=== PATIENT | female | born 1975 | race Caucasian/White ===

== ENCOUNTER 2016-12-24 12:42 | Inpatient (IN) | payer BC, OTHER ==
[~2016-12-24] VITALS: Ht 162.6 cm; Wt 49.4 kg
--- NOTE | 2016-12-28 14:30 | NUR ---
INTAKE ASSESSMENT Received patient in intake. She is AOX4, stable, and ambulatory. Vital signs WNL. Patient reports NKA. Patient has seizure hx last seizure 5 years ago. Patient brought home medications with her. Explained unit protocols and patient verbalized understanding. Will admit patient upon admission to third floor.
--- NOTE | 2016-12-28 14:45 | NUR ---
ADMISSION NOTE Allergy- NKA/NKFA Status-Full code Height 5'4 Weight-109 lb PCP-Peter Ayala Vital Signs- B/P-149/89,HR-91, R-18, TEMP-97.4, SPO2-97%, Pain 0/10 COWS-6 Patient is a 41 year old female admitted to [facility] to detox center for Heroin/Methamphetamine dependence under the care of Dr. Branham. Urine provided by patient for urine screen and thorough body and belonging check done by DEPOSITION REPORTER. Patient appears anxious and agitated,crying. Patient is cooperative during nursing assessment. Upon admission Patient is noted to be flat, intoxicated, but cooperative with admission. Patient denies chest pain or SOB. Lung sounds clear with no cough noted. Bowel sounds present in all 4 quadrants. BUE and BLE noted WNL with no edema present. Skin check done with no significant findings. Pt reported PMH of Anxiety, Depression, Insomnia. Pt reported history of seizure last one was 5 years ago from overdose of heroin. Pt refused PNA vaccine. Patient brought in home medications. Patient denies SI/HI ideations. Pt AOx4. Patient reported 6 times in treatment. Patient reports of 8 years of sobriety from 1999 to 2007. Pt reported s/s of withdrawal as N/V, body aches, anxiety, agitation, runny nose, watery eyes. Pt reported Substance abuse history as: Heroin- Pt reported smoking Heroin daily for past 5 months less than 1/2gm daily last used was 12/28/16 an hour before admission at 1345 "1 hit". Methamphetamine- Pt reported smoking Methamphetamine daily for past 5 months and last used was 12/28/16 at 0900 "1 hit", Educated patient regarding unit policies and protocols, patient verbalized understanding. Patient oriented to unit by DEPOSITION REPORTER. Fall and seizure precautions in place. Safety measures in place, Call light within reach. Will cont to monitor.
[2016-12-28] MEDS ORDERED: BUSP15TA3 PO (14:48)
[2016-12-28 15:09] LABS: ALANINE AMINOTRANSFERASE 68 U/L (14-59); ALKALINE PHOSPHATASE 90 U/L (50-136); ASPARTATE AMINOTRANSFERASE 45 U/L (15-37); BILIRUBIN,TOTAL 0.2 mg/dL (0.2-1.0); CARBON DIOXIDE 34 mmol/L (21-32); CHLORIDE 101 mmol/L (98-107); CREATININE 0.7 mg/dL (0.6-1.3); GLUCOSE 92 mg/dL (74-106); MAGNESIUM 1.9 mg/dL (1.8-2.4); POTASSIUM 3.8 mmol/L (3.5-5.1); TOTAL PROTEIN, SERUM 7.5 g/dL (6.4-8.2); UREA NITROGEN, BLOOD 8 mg/dL (7-18)
[2016-12-28 15:17] LABS: ETHANOL < 3 MG/DL (0-0)
[2016-12-28 15:27] LABS: *URINE HCG, QUAL NEGATIVE (NEGATIVE)
[2016-12-28 18:04] LABS: HEMATOCRIT 40.4 % (37-47); HEMOGLOBIN 13.2 G/DL (12.0-16.0); MEAN CORPUSCULAR HEMOGLOBIN 29.8 UUG (27.0-31.0); MEAN CORPUSCULAR HGB CONC 33 g/dL (32.0-37.0); MEAN CORPUSCULAR VOLUME 90.8 FL (81.0-99.0); PLATELET COUNT (AUTO) 294 K/UL (150-450); RED BLOOD CELL COUNT(AUTO) 4.45 MIL/UL (4.2-5.4)
[2016-12-28 18:05] LABS: BASOPHILS # (AUTO) 0.1 K/uL (0.0-8.0); BASOPHILS % (AUTO) 0.8 % (0.0-2.0); EOSINOPHILS # (AUTO) 0.1 K/uL (0.0-0.7); EOSINOPHILS % (AUTO) 0.9 % (0.0-7.0); LYMPHOCYTES % (AUTO) 28.1 % (20.5-51.5); MONOCYTES # (AUTO) 0.5 K/UL (0.1-1.30); MONOCYTES % (AUTO) 7.5 % (0.0-11.0); NEUTROPHILS # (AUTO) 4.4 K/UL (1.8-8.9); NEUTROPHILS % (AUTO) 62.7 % (38.5-71.5)
--- NOTE | 2016-12-28 19:03 | NUR ---
END OF SHIFT NOTE Pt was admitted this afternoon for Heroin/opioid dependence. New order to start 3 days Subutex in AM. Upon admission COWS score was 6. Vital signs WNL. She did not attend group and activities. Encourage Po fluids. Last COWS score was-5. All safety measures in place, call light within reach. Pt endorsed to night nurse in stable condition.
--- NOTE | 2016-12-28 19:15 | NUR ---
START OF SHIFT Received 41 year old female patient admitted on 12/28/16 for Heroin and Methamphetamine dependency. Pt is full code with NKA. She reports a PMHx of anxiety, depression and seizure 5 years ago. Pt reports using Heroin (smoke) less than 0.5 gram daily for 5 months. Last dose was 1 hit on 12/28/16 and Methampehtamine (smoke) less than 0.5 gram daily for 5 months. Last dose 1 hot on 12/28/16. Pt placed on 3 day Subutex taper to start 12/29/16. Per endorsement, pt did not receive or request PRN medications. Pt is alert and oriented x4, breathing is even and unlabored. Safety measures in place. Will monitor.
--- NOTE | 2016-12-28 20:13 | NUR ---
PRN BENADRYL, MOTRIN, CLONIDINE, ZOFRAN Pt complains of inability to sleep, headache 7/10, anxiety/chills, and nausea with no episode of vomiting. PRN Benadryl, Motrin, Clonidine, and Zofran administered as ordered. Safety measures in place. Will monitor effectiveness.
--- NOTE | 2016-12-28 21:13 | NUR ---
PRN REASSESSMENT PRN medications effective. Pt lying in bed with eyes closed noted to be asleep. Respirations 16, breathing is even and unlabored. Safety measures in place. Will monitor.
[2016-12-29] VITALS (7 sets, daily range): BP systolic 100–118; BP diastolic 68–88
--- NOTE | 2016-12-29 | NUR ---
COWS DEFERRED Pt lying in bed with eyes closed noted to be asleep. Respirations 16, breathing even and unlabored. Safety measures in place. Will monitor.
--- NOTE | 2016-12-29 04:00 | NUR ---
COWS DEFERRED Pt lying in bed with eyes closed noted to be asleep. Respirations 16, breathing even and unlabored. Safety measures in place. Will monitor.
--- NOTE | 2016-12-29 05:40 | NUR ---
PRN SUBUTEX/VISTARIL Pt complains of body aches, chills, sweats, anxiety, and restlessness. COWS:12. PRN Subutex and Vistaril administered as ordered. Will monitor effectiveness.
[2016-12-29 06:06] LABS: HEPATITIS B SURFACE AG Negative (Negative)
--- NOTE | 2016-12-29 06:40 | NUR ---
PRN REASSESSMENT PRN medications effective. Pt lying in bed with eyes closed noted to be asleep. No facial grimacing noted. Respirations 16, breathing even and unlabored. Safety measures in place.
--- NOTE | 2016-12-29 07:10 | NUR ---
END OF SHIFT Pt is a 41 year old female patient admitted on 12/28/16 for Heroin and Methamphetamine dependency. Pt is full code with NKA. She reports a PMHx of anxiety, depression and seizure 5 years ago. Pt placed on 3 day Subutex taper to start today 12/29/16. At 2013 she received PRN Benadryl, Motrin, Clonidine, Zofran and Bentyl. At 0540 she received PRN Subutex and Vistaril. She slept a total of 7 hrs, Intake: 910 mL, Void: x1, BM:0, COWS:12. Pt remains alert and oriented x4, breathing is even and unlabored. Safety measures in place. Endorsed to AM shift.
--- NOTE | 2016-12-29 07:56 | NUR ---
START OF SHIFT NOTE Received report from night nurse, 41 year old female patient admitted on 12/28/16 for Heroin and Methamphetamine dependency. Pt is full code with JOSE. She reports a PMH of anxiety, depression and seizure 5 years ago. Pt placed on 3 day Subutex taper to start today at 0900. Per endorsement pt received PRN'S medications effective, slept for 7 hours. Received pt alert oriented x4, skin intact warm and dry to touch. Educated pt with plan of the day and medications regimen with good verbal understanding. All safety measures in place, Call light within reach. Will cont to monitor.
--- NOTE | 2016-12-29 10:35 | NUR ---
Therapist prompted client about group times. Client stated she will attend groups today.
[2016-12-29 12:40] LABS: *AMPHETAMINE, URINE POSITIVE (NEGATIVE); *BARBITURATE, URINE NEGATIVE (NEGATIVE); *CANNABINOID, URINE NEGATIVE (NEGATIVE); *COCCAINE, URINE NEGATIVE (NEGATIVE); *OPIATE, URINE POSITIVE (NEGATIVE); *PHENCYCLIDINE SCREEN,URINE NEGATIVE (NEGATIVE)
--- NOTE | 2016-12-29 14:19 | NUR ---
PRN MOTRIN/ROBAXIN Pt was c/o of muscle cramps and body aches 5/10, PRN Motrin 600mg Po/Robaxin 750mg Po given as ordered. Will cont to monitor for effectiveness.
--- NOTE | 2016-12-29 15:19 | NUR ---
MOTRIN/ROBAXIN REASSESSMENT Upon reassessment pt reported medication effective pain and muscle cramps decreased to 2/10.
--- NOTE | 2016-12-29 19:15 | NUR ---
START OF SHIFT Received 41 year old female patient admitted on 12/28/16 for Heroin and Methamphetamine dependency. Pt is full code with NKA. She reports a PMHx of anxiety, depression and seizure 5 years ago. Pt reports using Heroin (smoke) less than 0.5 gram daily for 5 months. Last dose was 1 hit on 12/28/16 and Methamphetamine (smoke) less than 0.5 gram daily for 5 months. Last dose 1 shot on 12/28/16. Pt placed on 3 day Subutex taper started today( 12/29/16) and tolerating well. Per endorsement, pt received PRN Motrin and Robaxin. Pt is alert and oriented x4, breathing is even and unlabored. Side rails up x2 and padded. Will monitor.
--- NOTE | 2016-12-29 19:16 | NUR ---
END OF SHIFT NOTE Pt presented with muscle cramps and body aches. Pt was given PRN Motrin/Robaxin noted to be effective. Pt cont with 3 days Subutex taper tolerating well. Pt remained compliant with treatment and medications. Vital signs WNL. She did not attend group and activities. Encourage Po fluids. last COWS-5. All safety measures in place, call light within reach. Pt endorsed to night nurse in stable condition.
[2016-12-30] VITALS: BP 108/65
--- NOTE | 2016-12-30 | NUR ---
COWS DEFERRED Pt lying in bed with eyes closed noted to be asleep. Respirations 16, breathing even and unlabored. Safety measures in place. Will continue to monitor.
--- NOTE | 2016-12-30 03:09 | NUR ---
PRN VISTARIL, ROBAXIN, MOTRIN Pt complains of anxiety, body aches 8/10, and headache 8/10. PRN Vistaril, Robaxin and Motrin administered as ordered. Safety measures in place. Will monitor effectiveness.
[2016-12-30 04:00] VITALS: BP 105/70
--- NOTE | 2016-12-30 04:09 | NUR ---
PRN REASSESSMENT PRN medication effective. Pt lying in bed with eyes closed noted to be asleep. Respirations 16, breathing is even and unlabored. Safety measures in place. Will monitor.
--- NOTE | 2016-12-30 06:25 | NUR ---
PRN CLONIDINE Pt complains of agitation, anxiety, diaphoresis, and restlessness. PRN Clonidine administered as ordered. Breathing even and unlabored. Safety measures in place. Will monitor.
--- NOTE | 2016-12-30 06:30 | NUR ---
MD COMMUNICATION Pt with increased COWS:12, observed with diaphoresis, anxiety, agitation and restlessness. MD with order for Subutex 4 mg SL now and to skip 0900 dose. Order noted and carried out. Addendum: 12/30/16 at 0652 by NAOMI MORA RN Pt also verbalized wanting to leave AMA d/t feelings of discomfort, depression and agitation. Pt stated "I just don't want to be here, I'm uncomfortable, this is not right, I'm not ready." Primary nurse allowed pt to express feelings. Will endorse to AM shift.
--- NOTE | 2016-12-30 07:06 | NUR ---
END OF SHIFT Pt is a 41 year old female patient admitted on 12/28/16 for Heroin and Methamphetamine dependency. Pt is full code with NKA. She reports a PMHx of anxiety, depression and seizure 5 years ago. She continues on 3 day Subutex taper started on (12/29/16) and tolerating well. At 0309 she received PRN Robaxin, Vistaril and Motrin. At 0625 she received PRN Clonidine for complaints of anxiety, agitation, diaphoresis. At 0625 pt noted with COWS:12, was notified with new order for Subutex 4 mg now and to skip 0900 dose. Pt verbalized wanting to leave AMA. She slept a total of 8 hrs, Intake: 1170mL, Void: x2, BM:0, COWS: 12 @ 0625. Pt remains alert and oriented x4, breathing is even and unlabored. Side rails up x2 and padded. Endorsed to oncoming shift.
--- NOTE | 2016-12-30 07:33 | NUR ---
Start of shift note; Received report from night nurse. Patient is a 41 year old female admitted on 12/28/16 for Opiate dependence. Patient was placed on a 3 day Subutex taper. Patient reported history of anxiety, depression, insomnia and history of seizure last seizure was 5 years ago. Patient slept for 8 hours. Per endorsement patient received one time order of Subutex and per MD to skip 0900 Subutex dose, patient was educated regarding medication regime, patient verbalized understanding. Patient is on fall and seizure precautions. All safety measures secured. Will continue to monitor patient.
[2016-12-30 08:00] VITALS: BP 107/74
[2016-12-30 12:00] VITALS: BP 102/68
--- NOTE | 2016-12-30 15:21 | NUR ---
PRN medication; PRN Robaxin 750mg PO given for muscle aches. Will continue to monitor patient for effectiveness of medication.
--- NOTE | 2016-12-30 15:58 | NUR ---
Patient and MD communication; Patient came up to nursing stating " I want to leave AMA, i don't think detox is for me. It is so hard i do not think i can do this". Redirected patient as needed. Educated patient regarding the consequences of leaving AMA, patient verbalized understanding. MD was notified of current situation. Patient is currently being counseled by management coordinator. Will closely monitor patient.
[2016-12-30 16:00] VITALS: BP 123/77
--- NOTE | 2016-12-30 16:17 | NUR ---
PRN medication; Patient appears very anxious, pacing back and forth in the room unable to sit still. PRN Vistaril 50mg PO given for anxiety. Will closely monitor patient.
--- NOTE | 2016-12-30 17:00 | NUR ---
Re-assessment; patient appears calm and comfortable. PRN medication is effective. Patient still verbalizing wanting to leave AMA. MD was notified.
--- NOTE | 2016-12-30 17:14 | NUR ---
AMA note; Patient is AOX4. Patient verbalized wanting to leave AMA. MD was notified. Educated patient regarding the risk and consequences of leaving AMA, patient verbalized understanding. Patient denies suicidal ideations or tendencies. Encouraged patient to complete treatment by multiple staff members including MD and electronic funds transfer coordinator. Patient still decided to leave AMA. Community resources list given to patient incase in need of help. Patient was accompanied out of the hospital by RECREATION PROGRAM COORDINATOR. Patient left the hospital at exactly 1714 on 12/30/16.
== END 2016-12-30 17:14 | disposition left against medical advice (07) | DRG 894 ==
LOC: SRC 12-28 13:52
PROVIDERS: ADMIT Internal Medicine; ATTEND Internal Medicine
PROC: HZ2ZZZZ Detoxification Services for Substance Abuse Treatment (ICD-10-PCS; principal; 2016-12-28)
PROC: HZ51ZZZ Individual Psychotherapy for Substance Abuse Treatment, Behavioral (ICD-10-PCS; 2016-12-30)
DX: F11.23 Opioid dependence with withdrawal (principal); F33.2 Major depressive disorder, recurrent severe without psychotic features; F50.9 Eating disorder, unspecified; F15.20 Other stimulant dependence, uncomplicated; F41.9 Anxiety disorder, unspecified; F17.210 Nicotine dependence, cigarettes, uncomplicated; Z79.899 Other long term (current) drug therapy; B19.20 Unspecified viral hepatitis C without hepatic coma
CPT/HCPCS: 36415; 80307; 80324; 80361; 83735; 84703; 85025; 86580; 86592; 86705; 86803; 87340; 87806; 93005; A4663; G0480; Q0162; Q0163

== ENCOUNTER 2017-01-07 20:30 | Inpatient (IN) | payer BC, OTHER ==
[~2017-01-07] VITALS: Ht 162.6 cm; Wt 52.2 kg
--- NOTE | 2017-01-07 22:20 | NUR ---
Intake Assessment Assessment done at intake office. Patient is alert & oriented x4. Pt is ambulatory with a steady gait. Speech is clear and audible. Pt appears slightly anxious and is cooperative during interviews. Vitals noted B/P 102/59, AZ 75, RR 18, Temp 97.2, O2Sat 95%. Pt is here for Opiate. Pt has Hepatitis C. Hx of Seizure noted. Pt is allergic to Shellfish & Iodine. Explained to pt unit protocols. Pt verbalized understanding.
[2017-01-07 22:30] VITALS: BP 102/59
[2017-01-07] MEDS ORDERED: MAGNESIUM HYDROXIDE 30 ML LIQUID UDC PO PRN (22:30)
[2017-01-07] MEDS ORDERED: DICYCLOMINE HCL 20 MG TABLET PO PRN (22:30)
[2017-01-07] MEDS ORDERED: ONDANSETRON 4 MG/2 ML VIAL IM PRN (22:30)
[2017-01-07] MEDS ORDERED: CLONIDINE HCL 0.1 MG TABLET PO PRN (22:30)
[2017-01-07] MEDS ORDERED: MAG HYDROX/AL HYDROX/SIMETH 30 ML LIQUID UDC PO PRN (22:30)
[2017-01-07] MEDS ORDERED: ASPIRIN/ACETAMINOPHEN/CAFFEINE TABLET PO PRN (22:30)
[2017-01-07] MEDS ORDERED: MIRALAX 17 GM POWD.PACK PO PRN (22:30)
[2017-01-07] MEDS ORDERED: IBUPROFEN 600 MG TABLET PO PRN (22:30)
[2017-01-07] MEDS ORDERED: LOPERAMIDE HCL 2 MG CAPSULE PO PRN ×2 (22:30)
[2017-01-07] MEDS ORDERED: HYDROXYZINE PAMOATE 25 MG CAPSULE PO PRN (22:30)
[2017-01-07] MEDS ORDERED: ACETAMINOPHEN 325 MG TABLET PO PRN (22:30)
[2017-01-07] MEDS ORDERED: LORAZEPAM 1 MG TABLET PO PRN (22:30)
[2017-01-07] MEDS ORDERED: diphenhydrAMINE 50 MG CAPSULE PO PRN (22:30)
[2017-01-07] MEDS ORDERED: BUPRENORPHINE HCL 2 MG TAB.SUBL SL PRN (22:30)
--- NOTE | 2017-01-07 23:00 | NUR ---
ADMISSION NOTE: Patient is a 41 y.o female admitted at [facility] at approximately 2230pm of 01/07/17 for medically supervised withdrawal from Heroin & Meth dependence. Body search done and skin check performed in Room 303, no contraband found. Pt noted with open skin on her left lateral thigh. No bleeding noted. Pt is 5'4" tall and weighs 115 lbs in a standing scale. Pt is cooperative during assessment. Patient is oriented to floor unit and room. Patient follows a regular diet at home with allergies to Shellfish and Iodine. Pt wishes to be full Code. Patient is alert & oriented x4, ambulatory with a steady gait. Speech is clear and audible. Patient appears anxious but cooperative during interview. No shortness of breath noted. Respiration even & unlabored. Abdomen slightly distended. Bowel sounds noted to be hypoactive. Per patient she havent had a bowel movement in a week. Slight nausea noted with no episode of vomiting. Patient denies pain/discomfort at this time. No hand tremors noted. Patient denies any chest pain. Cows 4 noted. Patient noted with past medical history of Anxiety, Depression, Hepatitis C and Hernia repair (19 yrs old). Pt denies any thoughts of suicide in the past. Pt currently denies SI/HI. Pt was able to provide urine sample for drug screen upon admission and is voiding clear yellow urine with no problems. Substance use: 1. Heroin - Pt has has been using Heroin since she was 30 yrs old. Pt smokes 1-1.5 grams of Heroin daily for the past week. Pt's last use was on the day of admission 01/07/17. Per pt, she smoked "3 hits". 2. Meth- Pt started using when she was on her 20's. Pt reported that she uses on a intermittent non-daily basis. Last use was on 01/05/17. Per pt, she smoked "6 hits". 3. Klonopin- Pt took a tablet of Klonopin the night before admission 01/06/17 for sleep. Pt denies dependence on Klonopin. Treatment History: -[facility] (Dec 2016) -[facility] in [place] -[facility] Patient denies being hospitalized in the last 30 days. Patient reports his longest period of sobriety was for 8 years from 1999 to 2007. Patient reports symptoms when he does not use as "sweating, tremors, twitching, nausea, anxiety, agitation, restlessness & chills". Patient smokes occasionally. Patient refused flu & pneumonia vaccines, educated patient risk & benefits but still refused. Patient does not have a PCP. Urine drug screen came back positive for Opiates, Amphetamines, Cocaine & Benzodiazepines. Alcohol. Fall & Seizure precautions are in place. All needs attended & met. Safety precautions are in place. Bed locked in lowest position. Both side rails padded & up. Call light within pt's reach. Will continue to monitor. Dr. Hernandez seen pt at intake office. Awaiting for admission order. Will continue to monitor patient.
[2017-01-07 23:11] LABS: *URINE HCG, QUAL NEGATIVE (NEGATIVE)
[2017-01-07 23:11] LABS: *AMPHETAMINE, URINE POSITIVE (NEGATIVE); *BARBITURATE, URINE NEGATIVE (NEGATIVE); *CANNABINOID, URINE NEGATIVE (NEGATIVE); *COCCAINE, URINE POSITIVE (NEGATIVE); *OPIATE, URINE POSITIVE (NEGATIVE); *PHENCYCLIDINE SCREEN,URINE NEGATIVE (NEGATIVE)
[2017-01-07] MEDS: ONDANSETRON ODT 4 MG TAB.RAPDIS SL PRN (23:29)
--- NOTE | 2017-01-07 23:29 | NUR ---
PRN Miralax and Zofran Patient complains of slight nausea. PRN Zofran SL administered as ordered. Patient also reported that she hasn't had a bowel movement for a week now. Patient's abdomen noted to be firm but non-distended. PRN Miralax administered as ordered. Will monitor for effectiveness of medication.
[2017-01-07] MEDS ORDERED: LORAZEPAM 1 MG TABLET PO ONE (23:30)
[2017-01-07] MEDS ORDERED: MIRALAX 17 GM POWD.PACK ONE (23:38)
[2017-01-08] VITALS: BP 95/52
--- NOTE | 2017-01-08 00:29 | NUR ---
PRN Reassessment Patient verbalized improved nausea at this time. Patient lying in bed and appears comfortable. No s/s of distress. WIll continue to monitor for bowel movement.
[2017-01-08 04:00] VITALS: BP 98/57
[2017-01-08] MEDS ORDERED: NEOMYCIN SULFATE (04:03)
--- NOTE | 2017-01-08 07:08 | NUR ---
End of Shift Note: Patient is a 41 y/o female admitted last night 01/07/17 for Opiate dependence. Patient has PMHx of Anxiety, Depression, Hepatitis C & hernia repair (19 yrs old). Patient had hx of seizures 3 years ago. Patient is on a regular diet with allergies to Shellfish and Iodine. Full Code status. Patient is to be started on a Subutex taper today. Patient received a one time dose of Ativan 2mg for anxiety and PRN Zofran and Miralax during my shift. Last Cows noted is 2. Patient is stable and vitals WNL. Patient is alert & oriented x4. No s/s of distress noted. Patient still asleep at this time. Patient slept for a total of 6 hours. Pt consumed 500ml of fluids. Voided 1x with no bowel movement. All needs attended & met. Safety measures in place. Will endorse pt to day shift nurse.
--- NOTE | 2017-01-08 07:30 | NUR ---
Start of shift note; Received report from night nurse. Patient is a 41 year old female admitted on 01/07/17 for Opiate/Meth dependence. Patient reported history of anxiety, depression, hepatitis C, hernia repair, history of seizures. Patient is on a regular diet, allergic to iodine and shellfish. Patient is on fall and seizure precaution. Bed in lowest position, call light within reach. Will continue to monitor patient.
[2017-01-08 08:00] VITALS: BP 98/68
[2017-01-08] MEDS ORDERED: PATIENT MAY USE OWN MED- MD OK PO SCH (09:00)
[2017-01-08] MEDS ORDERED: TUBERCULIN,PURIF.PROT.DERIV. 5 TU/0.1 ML TEST ID ONE (09:00)
[2017-01-08 09:10] LABS: BASOPHILS # (AUTO) 0.1 K/uL (0.0-8.0); BASOPHILS % (AUTO) 1.3 % (0.0-2.0); EOSINOPHILS # (AUTO) 0.2 K/uL (0.0-0.7); EOSINOPHILS % (AUTO) 3.2 % (0.0-7.0); HEMATOCRIT 34.9 % (31.2-41.9); LYMPHOCYTES # (AUTO) 2.6 K/uL (20.0-40.0); LYMPHOCYTES % (AUTO) 37.4 % (20.5-51.5); MEAN CORPUSCULAR HGB CONC 34 g/dL (32.3-35.6); MEAN CORPUSCULAR VOLUME 90.4 fL (75.5-95.3); MONOCYTES # (AUTO) 1.1 K/uL (2.0-10.0); MONOCYTES % (AUTO) 15.2 % (0.0-11.0); NEUTROPHILS % (AUTO) 42.9 % (38.5-71.5); RED BLOOD CELL COUNT(AUTO) 3.87 MIL/uL (3.63-4.92)
[2017-01-08 09:16] LABS: BILIRUBIN,TOTAL 0.1 mg/dL (0.2-1.0); CREATININE 0.7 mg/dL (0.6-1.3); MAGNESIUM 1.8 mg/dL (1.8-2.4); POTASSIUM 4.3 mmol/L (3.5-5.1); TOTAL PROTEIN, SERUM 6.3 g/dL (6.4-8.2)
[2017-01-08 09:19] LABS: PLATELET COUNT (AUTO) 226 K/uL (179-408)
[2017-01-08] MEDS: BUPRENORPHINE HCL 2 MG TAB.SUBL SL SCH ×3 (09:24→20:26)
[2017-01-08] MEDS: MULTIVITAMINS,THERAPEUTIC TABLET PO SCH (09:24)
[2017-01-08] MEDS: GABAPENTIN 300 MG CAPSULE PO SCH ×3 (09:24→20:26)
[2017-01-08] MEDS: CITALOPRAM 20 MG TABLET PO SCH (09:24)
[2017-01-08 11:58] LABS: BASOPHILS % (MANUAL) 1 % (0-2); EOSINOPHILS % (MANUAL) 5 % (0-8); LYMPHOCYTES % (MANUAL) 42 % (20-40); MONOCYTES % (MANUAL) 12 % (2-10); NEUTROPHILS % (MANUAL) 39 % (42-75); PROMYELOCYTES % 1 %
[2017-01-08 12:00] VITALS: BP 106/65
[2017-01-08] MEDS: ONDANSETRON ODT 4 MG TAB.RAPDIS SL PRN (14:02)
--- NOTE | 2017-01-08 14:02 | NUR ---
PRN medication; Patient is complaining of nausea, PRN Zofran 4mg ODT given for nausea. Will continue to monitor for effectiveness of medication.
--- NOTE | 2017-01-08 15:02 | NUR ---
Re-assessment; Patient reported effectiveness of medication, denies nausea at this time. PRN Zofran is effective.
[2017-01-08 16:00] VITALS: BP 106/65
--- NOTE | 2017-01-08 18:24 | NUR ---
End of shift note; Patient is AOX4. Patient is a 41 year old female admitted on 01/07/17 for Opiate/Meth dependence. Patient reported history of anxiety, depression, hepatitis C, hernia repair, history of seizures. Patient is on a regular diet, allergic to iodine and shellfish. Patient is on fall and seizure precaution. Patient remained compliant with treatment plan. Medications were effective in reducing withdrawal symptoms. Met all needs.
--- NOTE | 2017-01-08 19:15 | NUR ---
Start of Shift Note: Patient is a 41 y/o female admitted last night 01/07/17 for Opiate dependence. Patient reported that she smokes Heroin 1.0-1.5 grams daily for a week & smokes Meth unknown dose in an intermittent non-daily basis. Patient has PMHx of Anxiety, Depression, Hepatitis C & hernia repair (19 yrs old). Patient had hx of seizures 3 years ago. Patient is on a regular diet with allergies to Shellfish and Iodine. Full Code status. Patient started today on a Subutex taper and tolerating well. Last COWS is 7. Patient was given PRN Zofran during day shift and was effective. Patient is alert & oriented x4. No shortness of breath noted. Respiration even & unlabored. Abdomen soft & non-distended. No nausea/vomiting noted at this time. Patient presented with complains of 8/10 generalized body, stuffy nose and anxiety. Hand tremors felt but not seen. Safety measures in place. Bed locked in lowest position. Both side rails up. Call light within pt's reach. Will continue to monitor patient.
[2017-01-08 20:00] VITALS: BP 104/61
[2017-01-08] MEDS: METHOCARBAMOL 750 MG TABLET PO PRN (20:26)
[2017-01-08] MEDS: TRAZODONE 100 MG TABLET PO SCH (20:26)
--- NOTE | 2017-01-08 20:26 | NUR ---
PRN Robaxin Patient complaining of 8/10 generalized body aches. Patient lying in bed and appears restless with facial grimacing noted. PRN Robaxin administered as ordered. Will reassess in 1 hour for effectiveness of medication.
[2017-01-08] MEDS ORDERED: TOPIRAMATE 100 MG TABLET PO SCH (21:00)
--- NOTE | 2017-01-08 21:26 | NUR ---
PRN Reassessment PRN Medication effective. Patient verbalized decreased in pain from 8/10 to 4/10. Patient lying in bed and appears comfortable. No s/s of distress noted. No facial grimacing noted. Will continue to monitor patient.
[2017-01-09 00:01] VITALS: BP 103/60
[2017-01-09 04:00] VITALS: BP 110/72
[2017-01-09] MEDS: ONDANSETRON ODT 4 MG TAB.RAPDIS SL PRN (04:40)
[2017-01-09] MEDS: METHOCARBAMOL 750 MG TABLET PO PRN (04:40)
--- NOTE | 2017-01-09 04:40 | NUR ---
PRN Administration Patient presented with complains of sweating, chills, 8/10 generalized body aches, dilated pupils, stuffy nose & nausea. Patient appears anxious and restless. PRN Clonidine PO, Vistaril PO, Robaxin PO & Zofran SL administered as ordered. Will monitor for effectiveness of medication.
--- NOTE | 2017-01-09 05:40 | NUR ---
PRN Reassessment Patient asleep in bed at this time and appear comfortable. No s/s of distress. No shortness of breath noted. Patient shows no s/s of facial grimacing. Safety measures in place. Will continue to monitor patient.
[2017-01-09 06:07] LABS: HEPATITIS B SURFACE AG Negative (Negative)
--- NOTE | 2017-01-09 07:03 | NUR ---
End of Shift Note: Patient is a 41 y/o female admitted last night 01/07/17 for Opiate dependence. Patient reported that she smokes Heroin 1.0-1.5 grams daily for a week & smokes Meth unknown dose in an intermittent non-daily basis. Patient has PMHx of Anxiety, Depression, Hepatitis C & hernia repair (19 yrs old). Patient had hx of seizures 3 years ago. Patient is on a regular diet with allergies to Shellfish and Iodine. Full Code status. Patient is on a Subutex taper and tolerating well. Last COWS is 12 @ 0400. Patient received PRN Robaxin x2, Vistaril, Clonidine, & Zofran during my shift and was effective. Patient is stable and vitals WNL. Patient is alert & oriented x4. No s/s of distress noted. Patient still asleep at this time. Patient slept for a total of 9 hours. Pt consumed 1000ml of fluids. Voided 1x with no bowel movement. All needs attended & met. Safety measures in place. Will endorse pt to day shift nurse.
[2017-01-09 08:00] VITALS: BP 97/67
--- NOTE | 2017-01-09 08:00 | NUR ---
START OF SHIFT NOTE Received pt aox4. Patient reports "not feeling good." She was given PRN Clonidine, Vistaril, Robaxin x2, and Zofran per night nurse. She is on a 5 day Subutex taper. Last COWS 10 this am at 0800. She slept for 9 hours. Encouraged pt to attend groups and activities. Encouraged pt to increase fluid intake to facilitate detox. Will monitor closely and offer help.
[2017-01-09] MEDS: CITALOPRAM 20 MG TABLET PO SCH (08:39)
[2017-01-09] MEDS: MULTIVITAMINS,THERAPEUTIC TABLET PO SCH (08:40)
[2017-01-09] MEDS: TOPIRAMATE 100 MG TABLET PO SCH (08:40)
[2017-01-09] MEDS: GABAPENTIN 300 MG CAPSULE PO SCH ×3 (08:40→20:50)
[2017-01-09] MEDS ORDERED: BUPRENORPHINE HCL 2 MG TAB.SUBL SL SCH (09:00)
--- NOTE | 2017-01-09 10:26 | NUR ---
[facility]SA SWAB COMPLETED AND SENT TO LAB
[2017-01-09] MEDS ORDERED: KETOROLAC TROMETHAMINE 30 MG INJ IM PRN (11:15)
[2017-01-09 12:00] VITALS: BP 94/61
[2017-01-09] MEDS: BUPRENORPHINE HCL 2 MG TAB.SUBL SL SCH ×2 (14:20→20:51)
[2017-01-09] MEDS: BACLOFEN 10 MG TABLET PO SCH ×2 (14:20→20:51)
[2017-01-09 16:00] VITALS: BP 103/60
--- NOTE | 2017-01-09 18:25 | NUR ---
END OF SHIFT NOTE PATIENT CONTINUED ON 5 DAY SUBUTEX TAPER AND TOLERATING WELL. NO PRNS GIVEN DURING SHIFT DETOX MEDS ARE EFFECTIVE. PT DID NOT ATTEND GROUPS OR ACTIVITIES DURING SHIFT. SHE SLEPT IN BED MAJORITY OF SHIFT. LAST COWS 8. PT IS COMPLIANT WITH MEDICATIONS. VITAL SIGNS STABLE. NO DISTRESS NOTED. ALL NEEDS MET. ALL SAFETY MEASURES IN PLACE. ENDORSED TO NIGHT NURSE.
--- NOTE | 2017-01-09 18:50 | NUR ---
START OF SHIFT NOTE: Patient is an 41 year old female admitted to [facility] on 01/07/2017 for medically supervised withdrawal from Heroin, Methamphetamine, and Klonopin, continue 5 dDay Subutex Taper. Patient tolerated well without ASE. Patient remains compliant with treatment, medication, and diet regime. Patient reports Allergy to Iodine, and shelfish derived, is on Full Code, Regular Diet, is on Fall and Seizures Precautions. Patient reports Past medical history: History of Seizures; Hepatitis C virus infection; Migraine headaches; Depression; Anxiety; Chronic tobacco use; Opioid use disorder. Past Surgical History: Supraumbilical hernia repair; Left breast mass excision; Tonsillectomy. She reports methamphetamine salts on an intermittent, non-daily basis. Upon endorsement patient is alert and oriented x4, she is fully ambulatory, no VTE chemical prophylaxis required. COWS 8, VS: T 98.1, BP 110/62, HR 68, RR:18, RA O2Sat: 99%. Body aches pain level: "6/10". Patient denies SI/HI. Respirations unlabored and even. Patient denies SOB and chest pain. Lungs Sounds are clear bilaterally. Bowel Sounds active in all x4 quadrants. Abdomen is soft and non-tender. PERRLA, brisk capillary refill, shirt turner equal and strong. Skin is warm and dry to touch. Skin is not intact: small healing lacerations Right Lateral Thigh from picking's. No discharging, no bleeding noted. Keep dry and clean, as ordered. Encourage fluids as tolerated. Encourage to attend activities groups. All needs met. Safety measures on place. Call light within reach, bed in lowest position and locked, padded rails up bilaterally rails up bilaterally. Patient endorsed by day shift nurse. Report received. Will continue to monitor closely.
[2017-01-09 20:00] VITALS: BP 110/62
[2017-01-09] MEDS: TRAZODONE 100 MG TABLET PO SCH (20:51)
[2017-01-10] VITALS: BP 95/58
[2017-01-10 04:00] VITALS: BP 108/63
--- NOTE | 2017-01-10 06:56 | NUR ---
END OF SHIFT NOTE: Patient is an 41 year old female admitted to [facility] on 01/07/2017 for medically supervised withdrawal from Heroin, Methamphetamine, and Klonopin, continue 5 Day Subutex Taper. Patient tolerated well without ASE. Patient remains compliant with treatment, medication, and diet regime. Patient reports Allergy to Iodine, and shellfish derived, is on Full Code, Regular Diet, is on Fall and Seizures Precautions. Patient reports Past medical history: History of Seizures; Hepatitis C virus infection; Migraine headaches; Depression; Anxiety; Chronic tobacco use; Opioid use disorder. Past Surgical History: Supraumbilical hernia repair; Left breast mass excision; Tonsillectomy. She reports methamphetamine salts on an intermittent, non-daily basis. Patient is fully ambulatory, no VTE chemical prophylaxis required. COWS 5 @0400, VS @0400: T 97.9, BP 108/63, HR 62, RR:15, RA O2Sat: 95%. Pain level: "0/10". Patient denies SI/HI. Respirations unlabored and even. Patient denies SOB and chest pain. Skin is warm and dry to touch. Skin is not intact: small healing lacerations Right Lateral Thigh from picking's. No discharging, or bleeding noted. Keep dry and clean, as ordered. No PRN Medications administrated. Patient slept 9 hours, intake 355 ml, voidedx1. Encourage fluids as tolerated. Encourage to attend activities groups. All needs met. Safety measures on place. Call light within reach, bed in lowest position and locked, padded rails up bilaterally. Patient endorsed to day shift nurse. Report given.
[2017-01-10 08:00] VITALS: BP 105/68
[2017-01-10] MEDS: TOPIRAMATE 100 MG TABLET PO SCH (08:16)
[2017-01-10] MEDS: MULTIVITAMINS,THERAPEUTIC TABLET PO SCH (08:16)
[2017-01-10] MEDS: BUPRENORPHINE HCL 2 MG TAB.SUBL SL SCH ×3 (08:16→21:23)
[2017-01-10] MEDS: GABAPENTIN 300 MG CAPSULE PO SCH ×3 (08:16→21:20)
[2017-01-10] MEDS: BACLOFEN 10 MG TABLET PO SCH ×2 (08:16→14:02)
[2017-01-10] MEDS: CITALOPRAM 20 MG TABLET PO SCH (08:16)
--- NOTE | 2017-01-10 08:18 | NUR ---
START OF SHIFT NOTE Received pt aox4. Patient reports feeling sweaty with generalized pain. No PRNs given per night nurse. She is on a 5 day Subutex taper. Last COWS 8 this am at 0800. She slept for 9 hours. Encouraged pt to attend groups and activities. Encouraged pt to increase fluid intake to facilitate detox. Will monitor closely and offer help.
[2017-01-10 12:00] VITALS: BP 96/63
--- NOTE | 2017-01-10 14:17 | NUR ---
endorsed pt to DESK ATTENDANTNu
--- NOTE | 2017-01-10 14:20 | NUR ---
RECEIVED REPORT FROM RN NURSE TO CONTINUE WITH CARE
[2017-01-10 16:00] VITALS: BP 114/64
--- NOTE | 2017-01-10 17:31 | NUR ---
PRN GIVEN Pt is c/o headache 11/19. Facial grimacing is observed. Tylenol 650mg PO PRN was given as ordered. Medication lindsay well. Encouraged increase fluid intake.
--- NOTE | 2017-01-10 18:43 | NUR ---
END OF SHIFT Pt is a 41 yr old female, alert and oriented x3. Pt was admitted on 01/07/17 for Opiate Dependence and is on 4 days Subutex taper as ordered. Pt has been observed with increase drowsiness and been in bed throughout the day. Pt received Tylenol for headache at 1731. Medication was effective. Encouraged increase fluid intake. VS are WNL. Last COWS score was 6 at 1600. Pt remains in bed, resting with respirations even and unlabored. Skin is warm and moist to touch. Fine tremors are seen. Pt denies any n/v. Pt is on fall and seizure precautions. Bed kept in low position and locked with side rail up x2. Call light is within reach.
--- NOTE | 2017-01-10 18:43 | NUR ---
START OF SHIFT NOTE: Patient is an 41 year old female admitted to [facility] on 01/07/2017 for medically supervised withdrawal from Heroin, Methamphetamine, and Klonopin, continue 5 Day Subutex Taper. Patient tolerated well without ASE. Patient remains compliant with treatment, medication, and diet regime. Patient reports Allergy to Iodine, and shellfish derived, is on Full Code, Regular Diet, is on Fall and Seizures Precautions. PMH: History of Seizures; Hepatitis C Migraine; Depression; Anxiety; Chronic tobacco use; Opioid abuse. Past Surgical History: Supraumbilical hernia repair; Left breast mass excision; Tonsillectomy. Patient is alert and oriented x4, she is fully ambulatory, no VTE chemical prophylaxis required. Patient denies SI/HI. COWS 7, VS: T 98.1, BP 105/69, HR 71, RR 19, RA O2Sat: 95%. Body aches pain level: "0/10". Respirations unlabored and even. Patient denies SOB and chest pain. Lungs Sounds are clear bilaterally. Bowel Sounds active in all x4 quadrants. Abdomen is soft and non-tender. PERRLA, brisk capillary refill, grain drier equal and strong. Skin is warm and dry to touch. Skin is not intact: small healing lacerations Right Lateral Thigh from picking's. No discharging, or bleeding noted. Keep dry and clean, as ordered. Encourage fluids as tolerated. Encourage to attend activities groups. All needs met. Safety measures on place. Call light within reach, bed in lowest position and locked, padded rails up bilaterally rails up bilaterally. Patient endorsed by day shift nurse. Report received. Will continue to monitor closely.
[2017-01-10 20:00] VITALS: BP 105/69
[2017-01-10] MEDS: BACLOFEN 20 MG TABLET PO SCH (21:20)
[2017-01-10] MEDS: TRAZODONE 100 MG TABLET PO SCH (21:20)
--- NOTE | 2017-01-10 21:39 | NUR ---
PRN MOTRIN 600 MG 1 TAB PO ADMINISTRATION Patient c/o Generalized body aches. Patient reports pain level "8/10". PRN Motrin 600 mg 1 tab PO administrated with full glass of water as ordered. Patient tolerated well. All needs met. Safety measures on place. Call light within reach, bed in lowest position and locked, padded rails up bilaterally rails up bilaterally. Will continue to monitor closely.
--- NOTE | 2017-01-10 22:39 | NUR ---
RE-ASSESSMENT Patient is sleeping. Respirations even and unlabored. RR 15. PRN Motrin 600 mg 1 tab PO administrated to patient @2139 for insomnia was effective. All needs met. Safety measures on place. Call light within reach, bed in lowest position and locked, padded rails up bilaterally rails up bilaterally. Will continue to monitor closely. Addendum: 01/11/17 at 0106 by HERMINIO HOFF RN PRN Motrin 600 mg 1 tab PO administrated to patient @2139 for pain was effective.
[2017-01-11] VITALS: BP 117/71
[2017-01-11 04:00] VITALS: BP 111/73
--- NOTE | 2017-01-11 06:58 | NUR ---
END OF SHIFT NOTE: Patient is an 41 year old female admitted to [facility] on 01/07/2017 for medically supervised withdrawal from Heroin, Methamphetamine, and Klonopin, continue 5 Day Subutex Taper. Patient tolerated well without ASE. Patient remains compliant with treatment, medication, and diet regime. Patient reports Allergy to Iodine, and shellfish derived, is on Full Code, Regular Diet, is on Fall and Seizures Precautions. Patient is fully ambulatory, no VTE chemical prophylaxis required. COWS 5 @0400, VS @0400: T 98.4, BP 111/73, HR 70, RR:16, RA O2Sat: 97%. Pain level: "0/10". Patient denies SI/HI. Respirations unlabored and even. Patient denies SOB and chest pain. Skin is warm and dry to touch. Skin is not intact: small healing lacerations Right Lateral Thigh from picking's. No discharging, or bleeding noted. Keep dry and clean, as ordered. PRN Motrin 600 mg 1 tab PO administrated to patient @2139 for pain was effective. Patient slept 9 hours, intake 947 ml, voidedx1. Encourage fluids as tolerated. Encourage to attend activities groups. All needs met. Safety measures on place. Call light within reach, bed in lowest position and locked, padded rails up bilaterally. Patient endorsed to day shift nurse. Report given.
--- NOTE | 2017-01-11 07:24 | NUR ---
START OF SHIFT Pt is a 41 yr old female, A&Ox3. Pt was admitted on 01/07/17 for Opiate Dependence and is on 4 day Subutex taper as ordered. Medication lindsay well. Received report from cage shift manager nurse. Pt received Motrin PRN for pain mgt. Medication was effective. Pt slept for 9 hrs. Last COWS score was 5. Pt is currently in bed resting with respirations even and unlabored. No acute distress noted. Skin is warm and moist to touch. Safety precautions observed. Bed kept in low position and locked with side rails up x2. Call light is within reach. Will continue to monitor.
[2017-01-11 08:00] VITALS: BP 103/64
[2017-01-11] MEDS ORDERED: BUPRENORPHINE HCL 2 MG TAB.SUBL SL SCH (09:00)
[2017-01-11] MEDS: CITALOPRAM 20 MG TABLET PO SCH (09:09)
[2017-01-11] MEDS: TOPIRAMATE 100 MG TABLET PO SCH (09:09)
[2017-01-11] MEDS: GABAPENTIN 300 MG CAPSULE PO SCH ×3 (09:10→21:35)
[2017-01-11] MEDS: MULTIVITAMINS,THERAPEUTIC TABLET PO SCH (09:10)
[2017-01-11] MEDS: BACLOFEN 20 MG TABLET PO SCH ×3 (09:10→21:35)
--- NOTE | 2017-01-11 09:10 | NUR ---
PRN GIVEN Pt c/o headache 09/19 and episodes of nausea. Pt denies any episodes of emesis. Excedrin Extra Strength PRN was given for headache. Zofran PRN was offered for nausea but pt refused. Encouraged increase fluid intake. VS are WNL. Will continue to monitor.
--- NOTE | 2017-01-11 10:10 | NUR ---
PRN RE-ASSESSMENT Excedrin Extra strength PRN was effective. Pt states pain level of 3/10. Encouraged increase fluid intake. will continue to monitor.
[2017-01-11 12:00] VITALS: BP 105/62
--- NOTE | 2017-01-11 14:55 | NUR ---
ENDORSEMENT GIVEN Endorse to RN nurse to continue with care. Pt is to be discharge tomorrow on 01/12/17. Location pending. Pt is in stable condition. VS is WNL.
[2017-01-11 16:00] VITALS: BP 114/68
[2017-01-11] MEDS ORDERED: HYDR-3895 PO (18:41)
[2017-01-11] MEDS ORDERED: TRAZ-147 PO (18:41)
[2017-01-11] MEDS ORDERED: CITA20TA19 PO (18:41)
[2017-01-11] MEDS ORDERED: IBUP-1955 PO (18:41)
[2017-01-11] MEDS ORDERED: DICY20TA28 PO (18:41)
[2017-01-11] MEDS ORDERED: BACL20TA PO (18:41)
[2017-01-11] MEDS ORDERED: TOPI100T PO (18:41)
[2017-01-11] MEDS ORDERED: GABA-534 PO ×2 (18:41)
[2017-01-11] MEDS ORDERED: CLON0.1T14 PO (18:41)
[2017-01-11] MEDS ORDERED: Aspirin/Acetaminophen/Caffeine PO (18:41)
--- NOTE | 2017-01-11 19:25 | NUR ---
End Of Shift Pt is in stable condition A&Ox4 pts last COWS 7. All scheduled medication given. Pt received PRN Excedrin. medication effective. all permeant information given to boiler testing technician nurse. Withdrawal symptoms were closely monitored. Patient encouraged to attend group therapies/sessions to learn new coping skills to recent relapse, patient denies SI/HI. Participated in group and therapy sessions. All needs met and attended.
--- NOTE | 2017-01-11 19:50 | NUR ---
START OF SHIFT 305 Received report from day shift nurse. Pt is lying in bed resting and easily is arousable. She is a 33 yo female admitted to [facility] on 01/07. She is A&O and ambulatory. Allergic to iodine and shellfish, full code status, and on a regular diet. PMH of hepatitis C, anxiety, depression, hernia repair, and seizure 3 years ago. On admission she reported using heroin 1-1.5 grams per day, klonopin 1mg x1, and methamphetamine unknown amount intermittently. Pt completed a 4 day subutex taper and is scheduled for discharge tomorrow. She denies s/s of withdrawal. Fall and seizure precautions in place. Bed is down with call light in reach. Addendum: 01/12/17 at 0719 by KRISTY MATIAS RN Correction - Pt is a 41 yo female.
[2017-01-11 20:00] VITALS: BP 129/75
[2017-01-11] MEDS: TRAZODONE 100 MG TABLET PO SCH (21:00)
[2017-01-12] VITALS: BP 110/66
--- NOTE | 2017-01-12 | NUR ---
0000 COWS deferred COWS ordered Q4HWA. Pt is lying in bed resting with eyes closed. Vital signs obtained. Safety measures in place.
--- NOTE | 2017-01-12 04:00 | NUR ---
0400 Vitals refused/COWS deferred Pt refused to be woken for 0400 vitals. She is lying in bed resting with eyes closed. Respirations even and unlabored. COWS ordered Q4HWA. Safety measures in place.
--- NOTE | 2017-01-12 07:18 | NUR ---
END OF SHIFT Report provided to day shift nurse. Pt is lying in bed resting. She is a 41 yo female admitted to [facility] on 01/07. She is A&O x4 and ambulatory. Allergic to iodine and shellfish, full code status, and on a regular diet. PMH of hepatitis C, anxiety, depression, hernia repair, and seizure 3 years ago. On admission she reported using heroin 1-1.5 grams per day, klonopin 1mg x1, and methamphetamine unknown amount intermittently. 4 day subutex taper ended yesterday and she is scheduled for discharge today. No PRN medications administered. Last COWS 1. She drank 855mL and slept for 9 hours. Fall and seizure precautions in place. Bed is down with call light in reach.
--- NOTE | 2017-01-12 07:51 | NUR ---
START OF SHIFT Received report from night nurse. 41 year old female patient admitted on 01/07/17 for opiate and benzo withdrawals. Pt has completed 4 day Subutex taper and is medically cleared for discharge. Pt does not present with s/s of withdrawals. Most recent cows 1 ciwa 1. No PRN medications needed or administered at night. All needs met at this time. Will continue to monitor.
[2017-01-12 08:01] VITALS: BP 134/88
[2017-01-12] MEDS: MULTIVITAMINS,THERAPEUTIC TABLET PO SCH (08:55)
[2017-01-12] MEDS: BACLOFEN 20 MG TABLET PO SCH (08:55)
[2017-01-12] MEDS: TOPIRAMATE 100 MG TABLET PO SCH (08:55)
[2017-01-12] MEDS: GABAPENTIN 300 MG CAPSULE PO SCH (08:55)
[2017-01-12] MEDS: CITALOPRAM 20 MG TABLET PO SCH (08:55)
--- NOTE | 2017-01-12 09:30 | NUR ---
D/C NOTES Pt is A/O x4. V/S remain WNL. Pt denies SI/HI or hallucinations. Pt shows no s/s of acute withdrawal at this time, and is stable. MD has medically cleared pt for d/c . Education on Hepatitis C, smoking cessation and medication side effects provided. Pt verbalizes understanding. All pt belongings are in belonging bag, including prescriptions, and home medications. Refuses PNU vaccination. Pt is being accompanied by DOLPHIN RESEARCHER at this time to be transported to rehab. All needs met.
== END 2017-01-12 09:30 | disposition home or self-care (01) | DRG 895 ==
LOC: SRC 21:26
PROVIDERS: ADMIT Internal Medicine; ATTEND Internal Medicine
PROC: HZ2ZZZZ Detoxification Services for Substance Abuse Treatment (ICD-10-PCS; principal; 2017-01-07)
PROC: HZ31ZZZ Individual Counseling for Substance Abuse Treatment, Behavioral (ICD-10-PCS; 2017-01-09)
DX: F11.23 Opioid dependence with withdrawal (principal); E87.3 Alkalosis; F33.2 Major depressive disorder, recurrent severe without psychotic features; F15.20 Other stimulant dependence, uncomplicated; F41.9 Anxiety disorder, unspecified; Z91.89 Other specified personal risk factors, not elsewhere classified; Z81.1 Family history of alcohol abuse and dependence; Z80.3 Family history of malignant neoplasm of breast; Z83.3 Family history of diabetes mellitus; F17.210 Nicotine dependence, cigarettes, uncomplicated; G43.909 Migraine, unspecified, not intractable, without status migrainosus; F14.10 Cocaine abuse, uncomplicated; E86.0 Dehydration; B19.20 Unspecified viral hepatitis C without hepatic coma; F13.90 Sedative, hypnotic, or anxiolytic use, unspecified, uncomplicated
CPT/HCPCS: 36415; 80307; 80324; 80346; 80353; 80361; 83735; 84703; 85025; 86592; 86705; 86803; 87340; 87806; Q0162

== ENCOUNTER 2017-03-04 12:11 | Inpatient (IN) | payer BC, OTHER ==
[~2017-03-04] VITALS: Ht 162.6 cm; Wt 53.5 kg
[~2017-03-04 12:11] MED LIST: Aspirin/Acetaminophen/Caffeine PO; BACL20TA PO; CITA20TA19 PO; CLON0.1T14 PO; DICY20TA28 PO; GABA-534 PO; HYDR-3895 PO; IBUP-1955 PO; TOPI100T PO; TRAZ-147 PO
--- NOTE | 2017-03-04 19:40 | NUR ---
INTAKE ASSESSMENT BP: 139/86, HR:100, RR:16, SpO2: 98%, T:98.0, Pt denies pain at this time Pt is in stable condition and is able to be admitted on the unit. Unit protocols regarding medications and vitals signs Q4H were explained. Pt verbalized understanding. Will continue admission upon arrival on the unit.
[2017-03-04] MEDS ORDERED: LORAZEPAM 1 MG TABLET PO PRN (19:45)
[2017-03-04] MEDS ORDERED: ACETAMINOPHEN 325 MG TABLET PO PRN (19:45)
[2017-03-04] MEDS ORDERED: IBUPROFEN 600 MG TABLET PO PRN (19:45)
[2017-03-04] MEDS ORDERED: LOPERAMIDE HCL 2 MG CAPSULE PO PRN ×2 (19:45)
[2017-03-04] MEDS ORDERED: CLONIDINE HCL 0.1 MG TABLET PO PRN (19:45)
[2017-03-04] MEDS ORDERED: MAG HYDROX/AL HYDROX/SIMETH 30 ML LIQUID UDC PO PRN (19:45)
[2017-03-04] MEDS ORDERED: MAGNESIUM HYDROXIDE 30 ML LIQUID UDC PO PRN (19:45)
[2017-03-04] MEDS ORDERED: diphenhydrAMINE 50 MG CAPSULE PO PRN (19:45)
[2017-03-04] MEDS ORDERED: ONDANSETRON ODT 4 MG TAB.RAPDIS SL PRN (19:45)
[2017-03-04] MEDS ORDERED: DICYCLOMINE HCL 20 MG TABLET PO PRN (19:45)
[2017-03-04] MEDS ORDERED: METHOCARBAMOL 750 MG TABLET PO PRN (19:45)
[2017-03-04] MEDS ORDERED: MIRALAX 17 GM POWD.PACK PO PRN (19:45)
[2017-03-04] MEDS ORDERED: BUPRENORPHINE HCL 2 MG TAB.SUBL SL PRN (19:45)
[2017-03-04] MEDS ORDERED: HYDROXYZINE PAMOATE 25 MG CAPSULE PO PRN (19:45)
[2017-03-04 20:42] LABS: *URINE HCG, QUAL NEGATIVE (NEGATIVE)
[2017-03-04 20:56] LABS: *AMPHETAMINE, URINE POSITIVE (NEGATIVE); *BARBITURATE, URINE NEGATIVE (NEGATIVE); *CANNABINOID, URINE NEGATIVE (NEGATIVE); *COCCAINE, URINE NEGATIVE (NEGATIVE); *OPIATE, URINE POSITIVE (NEGATIVE); *PHENCYCLIDINE SCREEN,URINE NEGATIVE (NEGATIVE)
[2017-03-04] MEDS ORDERED: LORAZEPAM 1 MG TABLET PO ONE (21:00)
--- NOTE | 2017-03-04 21:00 | NUR ---
309 ADMISSION NOTE COWS:4, CIWA:5 Pt arrived ambulatory from [facility] to the third floor accompanied by a MANAGER PRICING at 2001. Pt is a 41 year old female who was admitted on 03/04/17 for Heroin and Methamphetamine dependency. Pt is full code with allergy to shellfish. She reports a PMHx of Hep C, anxiety, depression, and hernia repair (19 years old). She reports having a PCP by the name of Dr. Badillo. She reported taking home medications of Celexa and Topiramate. Medications have been reconciled. She reports her longest sobriety was for 8 years from [id number]. She was recently admitted to [facility] on 01/07/17. She describes her current use as: 1. Heroin IV 1 gram daily for 1 month. Last dose gram IV on 03/04/17 at 12 pm 2. Methamphetamine IV daily for 1 month. Last dose gram on 03/04/17 at 12pm She describes her withdrawal symptoms as sweating, anxiety, tremors, chills and agitation Upon assessment, pt is alert and oriented x4. Anxious but cooperative. Speech is clear and audible. Heart rate regular. Pt denies chest pain or SOB. PERRLA, breathing even and unlabored, lung sounds clear. Abdomen is soft and nondistended. Bowel sounds present, last BM 03/02/17. Pt reports that BM is regular. Pts skin noted with scabs on bilateral arms related to skin picking. No drainage or bleeding noted. Pt reports an earache on the right ear related to using a qtip pt reported drainage but no drainage was noted upon assessment. MD aware of pts admission. Pt oriented to room and unit. Safety measures in place. Will monitor.
[2017-03-04] MEDS: TOPIRAMATE 100 MG TABLET PO SCH (21:04)
[2017-03-04] MEDS: GABAPENTIN 300 MG CAPSULE PO SCH (21:05)
[2017-03-04] MEDS ORDERED: LORAZEPAM 1 MG TABLET ONE (21:07)
[2017-03-04] MEDS ORDERED: GABAPENTIN 300 MG CAPSULE ONE (21:08)
[2017-03-04] MEDS ORDERED: TOPIRAMATE 100 MG TABLET ONE (21:08)
[2017-03-04] MEDS ORDERED: CITA40TA11 PO (21:24)
[2017-03-04] MEDS ORDERED: diphenhydrAMINE 50 MG CAPSULE ONE (21:39)
[2017-03-04 22:04] LABS: BASOPHILS % (AUTO) 0.7 % (0.0-2.0); EOSINOPHILS # (AUTO) 0.2 K/uL (0.0-0.7); EOSINOPHILS % (AUTO) 2.8 % (0.0-7.0); HEMATOCRIT 36.7 % (37-47); HEMOGLOBIN 12.1 G/DL (12.0-16.0); LYMPHOCYTES # (AUTO) 2.9 K/UL (0.8-4.8); LYMPHOCYTES % (AUTO) 41.9 % (20.5-51.5); MEAN CORPUSCULAR HGB CONC 33 g/dL (32.0-37.0); MEAN CORPUSCULAR VOLUME 90.8 FL (81.0-99.0); MONOCYTES # (AUTO) 0.7 K/UL (0.1-1.30); MONOCYTES % (AUTO) 9.6 % (0.0-11.0); PLATELET COUNT (AUTO) 329 K/UL (150-450); RED BLOOD CELL COUNT(AUTO) 4.04 MIL/UL (4.2-5.4); WHITE BLOOD COUNT (AUTO) 6.8 K/UL (4.0-11.2)
[2017-03-04 22:14] LABS: ALANINE AMINOTRANSFERASE 53 U/L (14-59); ALKALINE PHOSPHATASE 91 U/L (50-136); ASPARTATE AMINOTRANSFERASE 38 U/L (15-37); BILIRUBIN,TOTAL 0.2 mg/dL (0.2-1.0); CARBON DIOXIDE 27 mmol/L (21-32); CHLORIDE 109 mmol/L (98-107); CREATININE 0.9 mg/dL (0.6-1.3); GLUCOSE 95 mg/dL (74-106); MAGNESIUM 2.1 mg/dL (1.8-2.4); POTASSIUM 3.6 mmol/L (3.5-5.1); TOTAL PROTEIN, SERUM 6.8 g/dL (6.4-8.2); UREA NITROGEN, BLOOD 7 mg/dL (7-18)
[2017-03-04 22:18] LABS: ETHANOL < 3 MG/DL (0-0)
[2017-03-05] VITALS: BP 102/65
--- NOTE | 2017-03-05 | NUR ---
COWS DEFERRED Pt lying in bed with eyes closed noted to be asleep. Breathing even and unlabored. Safety measures in place. Will monitor.
--- NOTE | 2017-03-05 04:00 | NUR ---
VITALS REFUSED/COWS DEFERRED 0400 vitals refused. COWS deferred. Pt is lying in bed with eyes closed noted to be asleep. Respirations 16, breathing even and unlabored. Safety measures in place. Will monitor.
--- NOTE | 2017-03-05 06:59 | NUR ---
END OF SHIFT Pt is a 41 year old female who was admitted on 03/04/17 for Heroin and Methamphetamine dependency. Pt is full code with allergy to shellfish. She reports a PMHx of Hep C, anxiety, depression, and hernia repair (19 years old). She is scheduled to start a 4 day Subutex taper today 03/05/17. She received PRN Benadryl at 2128. She slept a total of 5 hrs, Intake: 796mL, Void: x2, BM:0, COWS: 4, CIWA:4, COWS:4. She remains alert and oriented x4, breathing even and unlabored. Safety measures in place. Endorsed to AM shift.
--- NOTE | 2017-03-05 07:44 | NUR ---
Start of shift note; Received report from night nurse. Patient is a 41 year old female admitted on 03/04/17 for Opiate/Methamphetamine dependence. Patient to start on a 4 day Subutex taper. Patient reported history of anxiety, depression, Hepatitis C, Hernia repair. Patient is on full code status, allergic to shellfish and on a regular diet. Patient slept for 5 hours. Patient received PRN Benadryl noted to be effective. Patient's last COWS is 4 and last CIWA is 4. Patient is on fall and seizure precaution. Bed in lowest position, call light within reach. Will continue to monitor patient.
[2017-03-05] MEDS ORDERED: ASPIRIN/ACETAMINOPHEN/CAFFEINE TABLET PO PRN (07:45)
[2017-03-05 08:00] VITALS: BP 92/63
[2017-03-05] MEDS ORDERED: TUBERCULIN,PURIF.PROT.DERIV. 5 TU/0.1 ML TEST ID ONE (09:00)
[2017-03-05] MEDS: GABAPENTIN 300 MG CAPSULE PO SCH ×3 (09:38→20:12)
[2017-03-05] MEDS: TOPIRAMATE 100 MG TABLET PO SCH ×2 (09:38→20:12)
[2017-03-05] MEDS: BUPRENORPHINE HCL 2 MG TAB.SUBL SL SCH ×3 (09:39→20:12)
[2017-03-05] MEDS ORDERED: Medication Not On Formulary EA (Citalopram Hydrobromide (Citalopram Hbr) 40 MG) PO SCH (10:30)
[2017-03-05 12:00] VITALS: BP 121/84
[2017-03-05] MEDS ORDERED: KETOROLAC TROMETHAMINE 30 MG INJ IM PRN (12:45)
[2017-03-05] MEDS ORDERED: KETOROLAC TROMETHAMINE 30 MG INJ IM ONE (13:00)
[2017-03-05] MEDS ORDERED: BUPRENORPHINE HCL 2 MG TAB.SUBL SL ONE (13:00)
[2017-03-05] MEDS: CITALOPRAM 20 MG TABLET PO SCH (14:22)
--- NOTE | 2017-03-05 14:42 | NUR ---
Medication held; Due medications ordered held due to sedation. HR of 58, BP of 92/58. Will closely monitor patient. Addendum: 03/05/17 at 1445 by KENDAL RODRIGUEZ LVN Medications held at 1300.
[2017-03-05 16:00] VITALS: BP 100/66
--- NOTE | 2017-03-05 18:10 | NUR ---
End of shift note; Patient is AOX4. Patient is a 41 year old female admitted on 03/04/17 for Opiate/Methamphetamine dependence. Patient to start on a 4 day Subutex taper. Patient reported history of anxiety, depression, Hepatitis C, Hernia repair. Patient is on full code status, allergic to shellfish and on a regular diet. Patient remained compliant with treatment plan and medication regime. Medications were effective in reducing withdrawal symptoms. Patient's last COWS score is 6. Patient is on fall and seizure precaution. Bed in lowest position, call light within reach. Met all needs.
--- NOTE | 2017-03-05 19:15 | NUR ---
START OF SHIFT Received 41 year old female patient admitted on 03/04/17 for Heroin and Methamphetamine dependency. Pt is full code with allergy to shellfish. Pt reports a PMHx of anxiety, depression, hep C, and hernia repair (19 years old). Pt reports using Heroin IV 1 gram daily for 1 month. Last dose was 1/2 gram on 03/04/17. And methamphetamine IV 1/2 gram daily for 1 month. Last dose was 1/4 gram on 03/04/17. Pt placed on modified 4 day Subutex taper started today. She is tolerating well. Per endorsement, she did not receive or request PRN medications. Pt is in room sleeping, but responds to nurses greeting. Breathing is even and unlabored, safety measures in place. Will continue to monitor.
[2017-03-05 20:00] VITALS: BP 132/75
[2017-03-05] MEDS: TRAZODONE 100 MG TABLET PO SCH (20:12)
--- NOTE | 2017-03-05 20:12 | NUR ---
PRN EXCEDRIN Pt complains of migraine headache. PRN Excedrin administered as ordered. Will continue to monitor.
--- NOTE | 2017-03-05 21:12 | NUR ---
PRN REASSESSMENT PRN medication effective. Pt lying comfortably in bed with eyes closed noted to be asleep. No facial grimacing noted. Breathing even and unlabored. Safety measures in place. Will monitor.
--- NOTE | 2017-03-06 | NUR ---
VITALS REFUSED, COWS DEFERRED Vitals refused by pt. COWS deferred d/t pt lying in bed with eyes closed noted to be asleep. Respirations 16, breathing even and unlabored. Safety measures in place. Will continue to monitor.
--- NOTE | 2017-03-06 04:00 | NUR ---
VITALS REFUSED, COWS DEFERRED 0400 vitals refused by pt. COWS deferred d/t pt lying in bed with eyes closed noted to be asleep. Respirations 16, breathing even and unlabored. Safety measures in place. Will continue to monitor.
[2017-03-06 05:06] LABS: HEPATITIS B SURFACE AG Negative (Negative)
--- NOTE | 2017-03-06 07:04 | NUR ---
END OF SHIFT Pt is a 41 year old female patient admitted on 03/04/17 for Heroin and Methamphetamine dependency. Pt is full code with allergy to shellfish. She continues on a modified 4 day Subutex taper started on 03/05/17 and is tolerating well. At 2011 she received PRN Excedrin. She slept a total of 10 hrs, Intake: 500mL, Void: x1l, BM:0, COWS: 9. Pt remains alert and oriented x4, breathing is even and unlabored, safety measures in place. Will endorse to AM shift.
--- NOTE | 2017-03-06 07:30 | NUR ---
Start of shift note; Received report from night nurse. Patient is a 41 year old female admitted on 03/04/17 for Opiate/Methamphetamine dependence. Patient to start on a 4 day Subutex taper. Patient reported history of anxiety, depression, Hepatitis C, Hernia repair. Patient is on full code status, allergic to shellfish and on a regular diet. Patient slept for 10 hours. Patient received PRN Excedrin noted to be effective. Patient's last COWS is 7. Patient is on fall and seizure precaution. Bed in lowest position, call light within reach. Will continue to monitor patient.
[2017-03-06 08:00] VITALS: BP 126/89
[2017-03-06] MEDS: TOPIRAMATE 100 MG TABLET PO SCH ×2 (08:54→20:57)
[2017-03-06] MEDS: GABAPENTIN 300 MG CAPSULE PO SCH ×3 (08:54→20:55)
[2017-03-06] MEDS: CITALOPRAM 20 MG TABLET PO SCH (08:54)
[2017-03-06] MEDS ORDERED: BUPRENORPHINE HCL 2 MG TAB.SUBL SL SCH (09:00)
[2017-03-06 12:00] VITALS: BP 99/65
[2017-03-06] MEDS ORDERED: KETOROLAC TROMETHAMINE 30 MG INJ IM ONE (15:00)
[2017-03-06] MEDS: BUPRENORPHINE HCL 2 MG TAB.SUBL SL SCH ×2 (15:01→20:57)
[2017-03-06] MEDS: BACLOFEN 10 MG TABLET PO SCH ×2 (15:01→20:56)
--- NOTE | 2017-03-06 15:15 | NUR ---
One time order; ordered one time dose of Toradol IM 30mg for severe pain. Patient reported generalized pain rated 9/10 on pain scale. Medication administered as ordered. Will continue to monitor patient.
[2017-03-06 16:00] VITALS: BP 90/64
--- NOTE | 2017-03-06 16:15 | NUR ---
Re-assessment; Patient is AOX4. Patient's generalized pain went down to 6/10 from 9/10. Toradol IM noted to be effective.
--- NOTE | 2017-03-06 18:20 | NUR ---
End of shift note; Patient is AOX4. Patient is a 41 year old female admitted on 03/04/17 for Opiate/Methamphetamine dependence. Patient to start on a 4 day Subutex taper. Patient reported history of anxiety, depression, Hepatitis C, Hernia repair. Patient is on full code status, allergic to shellfish and on a regular diet. Patient's last COWS is 4. Patient is on fall and seizure precaution. Bed in lowest position, call light within reach. Patient remained compliant with treatment plan and medication regime. All safety measures secured. Met all needs.
--- NOTE | 2017-03-06 19:15 | NUR ---
START OF SHIFT Received 41 year old female patient admitted on 03/04/17 for Heroin and Methamphetamine dependency. Pt is full code with allergy to shellfish. Pt reports a PMHx of anxiety, depression, hep C, and hernia repair (19 years old). Pt reports using Heroin IV 1 gram daily for 1 month. Last dose was 1/2 gram on 03/04/17. And methamphetamine IV 1/2 gram daily for 1 month. Last dose was 1/4 gram on 03/04/17. Pt currently on a modified 4 day Subutex taper and is tolerating well. Per endorsement, she received a one time order of Toradol. Pt is alert and oriented x4. Breathing is even and unlabored, safety measures in place. Will continue to monitor.
[2017-03-06 20:00] VITALS: BP 106/73
[2017-03-06] MEDS: CLONIDINE HCL 0.1 MG TABLET PO SCH (20:56)
[2017-03-06] MEDS: TRAZODONE 100 MG TABLET PO SCH (20:57)
--- NOTE | 2017-03-06 20:57 | NUR ---
PRN MOTRIN Pt complains of headache 10/19. PRN Motrin administered as ordered. Will monitor effectiveness.
--- NOTE | 2017-03-06 21:57 | NUR ---
REASSESSMENT PRN medication effective. Pt lying in bed with eyes closed noted to be asleep. Breathing even and unlabored. Safety measures in place. Will continue to monitor.
--- NOTE | 2017-03-07 | NUR ---
VITALS REFUSED, COWS DEFERRED 0000 vitals refused by pt. COWS deferred d/t pt lying in bed with eyes closed noted to be asleep. Respirations 16, breathing even and unlabored. Safety measures in place. Will continue to monitor.
--- NOTE | 2017-03-07 06:57 | NUR ---
END OF SHIFT Pt is a 41 year old female patient admitted on 03/04/17 for Heroin and Methamphetamine dependency. Pt is full code with allergy to shellfish. Pt continues on a modified 4 day Subutex taper and is tolerating well. She is scheduled to complete her taper on 03/09/17. At 2056 she received PRN Motrin. She slept a total of 11hrs, Intake:350mL, Void: x1, BM:0, COWS:5. Pt remains alert and oriented x4. Breathing is even and unlabored, safety measures in place. Endorsed to AM shift.
--- NOTE | 2017-03-07 07:35 | NUR ---
Start of shift note; Received report from night nurse. Patient is a 41 year old female admitted on 03/04/17 for Opiate/Methamphetamine dependence. Patient to start on a 4 day Subutex taper. Patient reported history of anxiety, depression, Hepatitis C, Hernia repair. Patient is on full code status, allergic to shellfish and on a regular diet. Patient slept for 11 hours. Patient received PRN Excedrin noted to be effective. Patient's last COWS is 5. Patient is on fall and seizure precaution. Bed in lowest position, call light within reach. Will continue to monitor patient.
[2017-03-07 08:00] VITALS: BP 120/88
[2017-03-07] MEDS: GABAPENTIN 300 MG CAPSULE PO SCH ×3 (08:48→20:48)
[2017-03-07] MEDS: CLONIDINE HCL 0.1 MG TABLET PO SCH ×2 (08:48→20:49)
[2017-03-07] MEDS: BACLOFEN 10 MG TABLET PO SCH (08:48)
[2017-03-07] MEDS: TOPIRAMATE 100 MG TABLET PO SCH ×2 (08:48→20:48)
[2017-03-07] MEDS: BUPRENORPHINE HCL 2 MG TAB.SUBL SL SCH ×3 (08:48→20:49)
[2017-03-07] MEDS: CITALOPRAM 20 MG TABLET PO SCH (08:48)
[2017-03-07 12:00] VITALS: BP 99/65
[2017-03-07] MEDS ORDERED: NAPROXEN 500 MG TABLET PO ONE (13:00)
[2017-03-07] MEDS ORDERED: AZITHROMYCIN 250 MG TABLET PO ONE (13:00)
--- NOTE | 2017-03-07 13:25 | NUR ---
MD order; MD ordered Zithromax 500mg PO one time dose for acute otitis media per MD. medication administered as ordered.
[2017-03-07] MEDS: BACLOFEN 20 MG TABLET PO SCH ×2 (14:17→20:48)
[2017-03-07 16:00] VITALS: BP 92/67
--- NOTE | 2017-03-07 18:20 | NUR ---
End of shift note; Patient is AOX4. Patient is a 41 year old female admitted on 03/04/17 for Opiate/Methamphetamine dependence. Patient to start on a 4 day Subutex taper. Patient reported history of anxiety, depression, Hepatitis C, Hernia repair. Patient is on full code status, allergic to shellfish and on a regular diet. Patient's last COWS is 4 at 1600. Patient is on fall and seizure precaution. Bed in lowest position, call light within reach. Patient remained compliant with treatment plan and medication regime. Medications were effective in reducing withdrawal symptoms. All safety measures secured. Met all needs.
--- NOTE | 2017-03-07 19:30 | NUR ---
START OF SHIFT Patient is a 41 year old female admitted for Opiate/Methamphetamine dependency;continues on 4 day Subutex taper as ordered. Patient reported history of anxiety, depression, Hepatitis C, Hernia repair. Patient is on full code status, allergic to shellfish and on a regular diet. Patient's last COWS is 4 at 1600.Pt received in room,resting in bed,A/A/O X 4. Patient is on fall and seizure precaution. Bed is locked in lowest position,side rails up x 2, call light within reach. Patient is compliant with treatment plan and medication regime. Medications are effective in reducing withdrawal symptoms. All safety measures in place. Met all needs;will continue to monitor.
[2017-03-07 20:00] VITALS: BP 102/65
[2017-03-07] MEDS: CARBAMIDE PEROXIDE OTIC DROP 15 ML BOTTLE RIGHT EAR SCH (20:59)
[2017-03-07] MEDS: NAPROXEN 500 MG TABLET PO SCH (21:00)
[2017-03-07] MEDS: TRAZODONE 100 MG TABLET PO SCH (21:00)
[2017-03-08] VITALS: BP 100/62
[2017-03-08 04:00] VITALS: BP 101/59
--- NOTE | 2017-03-08 04:00 | NUR ---
COWS DEFERRED D/T PT BEING FAST ASLEEP .
--- NOTE | 2017-03-08 06:42 | NUR ---
END OF SHIFT Patient is a 41 year old female admitted for Opiate/Methamphetamine dependency;continues on 4 day Subutex taper as ordered. Patient reported history of anxiety, depression, Hepatitis C, Hernia repair. Patient is on full code status, allergic to shellfish and on a regular diet. Patient's last COWS is 2.Pt is A/O X 4. Patient is on fall and seizure precaution. Bed is locked in lowest position,side rails up x 2, call light within reach. Patient is compliant with treatment plan and medication regime. No PRN meds given;pt slept 10 hrs;fluid intake was 605 mls,voided x 1. All safety measures in place. Met all needs;will continue to monitor..
--- NOTE | 2017-03-08 07:36 | NUR ---
BEGINNING OF SHIFT Patient endorsement report received from cnc machinist 2nd shift nurse, all pertinent information discussed. Patient is a 41 year old female admitted on: 03/04/2017 with admitting Dx: Opiate Dependence, With substance use of: methamphetamine. Patient is currently with ongoing 4 day Subutex taper as ordered and is currently on day 3 of taper. continues under close observation,received no PRNSduring shift. Patient with last cow score of: 2. Patient slept for 10 hours. Patient received awake, alert and oriented x4, educated patient regarding plan of care for the day and medication regimen with good verbal understanding. Safety measures in place. call light kept with in reach, Fall and seizure precautions in place. will continue to monitor closely.
[2017-03-08 08:20] VITALS: BP 99/61
[2017-03-08] MEDS: GABAPENTIN 300 MG CAPSULE PO SCH ×3 (08:52→21:26)
[2017-03-08] MEDS: TOPIRAMATE 100 MG TABLET PO SCH ×2 (08:52→21:26)
[2017-03-08] MEDS: BACLOFEN 20 MG TABLET PO SCH ×3 (08:52→21:26)
[2017-03-08] MEDS: CITALOPRAM 20 MG TABLET PO SCH (08:52)
[2017-03-08] MEDS: NAPROXEN 500 MG TABLET PO SCH ×2 (08:52→21:26)
[2017-03-08] MEDS: AZITHROMYCIN 250 MG TABLET PO SCH (08:52)
[2017-03-08] MEDS: FAMOTIDINE 20 MG TABLET PO SCH (08:52)
[2017-03-08] MEDS: CARBAMIDE PEROXIDE OTIC DROP 15 ML BOTTLE RIGHT EAR SCH ×2 (08:53→21:27)
[2017-03-08] MEDS: CLONIDINE HCL 0.1 MG TABLET PO SCH ×2 (08:56→21:26)
[2017-03-08] MEDS ORDERED: BUPRENORPHINE HCL 2 MG TAB.SUBL SL SCH (09:00)
[2017-03-08 13:40] VITALS: BP 90/61
[2017-03-08 17:32] VITALS: BP 101/60
--- NOTE | 2017-03-08 18:49 | NUR ---
END OF SHIFT Patient alert and oriented x4, patient compliant with therapeutic plan of care. Patient with admitting Dx: Opiate dependence, Patient completed 4 day Subutex taper as ordered, during shift, well tolerated, no ASE noted. 0900 assessment patient presented: flushed, dilated pupils, mild bone and joint aches, nasal stuffiness, and mild anxiety with cow score of:7; 1300 assessment patient presented with: c/o chills, nasal stuffiness, and mild anxiety with cow score of: 3; 1700 assessment patient presented with; c/o chills, nasal stuffiness, and mild anxiety with cow score of: 3. Detox medication effective at reducing withdrawal symptoms. Patient is scheduled to be discharged tomorrow morning, noted self motivated towards sobriety. Patient encouraged adequate PO fluid intake as tolerated, Encouraged to attend group therapies/sessions to learn new coping skills to prevent relapse, noted attending and participating. denies any SI/HI. Patient administered no PRNs during shift. Patients safety measures are in place. all needs met and rendered. Patient endorsement report given to lieutenant shift supervisor nurse, all pertinent information discussed. Safety measurers in place. will continue to monitor.
[2017-03-08 20:00] VITALS: BP 101/57
--- NOTE | 2017-03-08 20:00 | NUR ---
2000 Patient received resting quietly in -like position of comfort , with eyes closed and respirations even at 14. Patient aroused for nurse assess and vital signs. Patient responds to nurse's greeting and introduction with brief eye contact, slight smile and flat, " Hi". Patient's color is pink and her skin is warm, dry and intact. Patient is oriented to person, place, day, date, and her personal situation. Reoriented to time. Patient denies any pain or other discomforts and she voices no requests for anything at this time. Patient states that she is eating and taking fluids "okay" and that she is being discharged tomorrow. Patient did not 'feel up to going' to PM group tonight. Vital signs are: 98.1-70-14 101/57, O2 Sat 98%, COWS 1. Patient was admitted on 03/04/17 for Heroin and Methamphetamine withdrawal and she has completed a 4-Day Subutex medication taper at this time. Patient is sleepy and she states that she wants to sleep the rest of the night. Bed is locked and in lowest position, bed rails are up X 2 and call light is in patient's easy reach.
[2017-03-08] MEDS: TRAZODONE 100 MG TABLET PO SCH (21:26)
[2017-03-08] MEDS ORDERED: METH-406 PO (21:30)
[2017-03-08] MEDS ORDERED: DICY20TA28 PO (21:30)
[2017-03-08] MEDS ORDERED: CITA20TA19 PO (21:30)
[2017-03-08] MEDS ORDERED: HYDR-3895 PO (21:30)
[2017-03-08] MEDS ORDERED: NAPR500T3 PO (21:30)
[2017-03-08] MEDS ORDERED: TOPI100T PO ×2 (21:30)
[2017-03-08] MEDS ORDERED: AZIT250T6 PO (21:30)
[2017-03-08] MEDS ORDERED: CLON0.1T14 PO (21:30)
[2017-03-08] MEDS ORDERED: GABA-534 PO ×2 (21:30)
[2017-03-08] MEDS ORDERED: DIPH50CA37 PO (21:30)
[2017-03-08] MEDS ORDERED: TRAZ-147 PO (21:30)
--- NOTE | 2017-03-09 | NUR ---
Patient sleeping soundly and she does not wish to be awakened at this time for V/S, COWS to be done.
--- NOTE | 2017-03-09 04:00 | NUR ---
Patient sleeping soundly with eyes closed and respirations quiet, even at 12. Patient refused to be awakened for V/S to be done.
--- NOTE | 2017-03-09 06:30 | NUR ---
0630 Patient slept a total of 10 hours and she had 1 void and no stools. Total intake was 500 ml p.o. Patient had no prn medications this shift. V/SS afebrile, last COWS 1. Patient is presently resting comfortably with eyes closed and respirations even, unlabored at 12.
--- NOTE | 2017-03-09 07:35 | NUR ---
START OF SHIFT Received report from night nurse. 41 year old female admitted for 03/04/17 for heroin and methamphetamine withdrawals. Pt has completed 4 day Subutex taper and is medically cleared for discharge. No prn medications needed or administered at night, COWS are 1. Pt remains compliant and safe throughout hospitalization. All needs met at this time. Will continue to monitor.
[2017-03-09 08:34] VITALS: BP 104/68
[2017-03-09 08:38] VITALS: BP 104/68
[2017-03-09] MEDS: CLONIDINE HCL 0.1 MG TABLET PO SCH (08:38)
[2017-03-09] MEDS: NAPROXEN 500 MG TABLET PO SCH (09:30)
[2017-03-09] MEDS: GABAPENTIN 300 MG CAPSULE PO SCH (09:30)
[2017-03-09] MEDS: CITALOPRAM 20 MG TABLET PO SCH (09:30)
[2017-03-09] MEDS: BACLOFEN 20 MG TABLET PO SCH (09:30)
[2017-03-09] MEDS: FAMOTIDINE 20 MG TABLET PO SCH (09:30)
[2017-03-09] MEDS: AZITHROMYCIN 250 MG TABLET PO SCH (09:31)
[2017-03-09] MEDS: CARBAMIDE PEROXIDE OTIC DROP 15 ML BOTTLE RIGHT EAR SCH (09:31)
[2017-03-09] MEDS: TOPIRAMATE 100 MG TABLET PO SCH (09:31)
--- NOTE | 2017-03-09 10:10 | NUR ---
D/C NOTES Pt is A/O x4. V/S remain WNL. Pt denies SI/HI or hallucinations. Pt shows no s/s of acute withdrawal at this time, and is stable. MD has medically cleared pt for d/c. Education on Hepatitis C, smoking cessation and medication side effects provided. Pt verbalizes understanding. All pt belongings are in belonging bag, including prescriptions, including home medications. Refuses PNU vaccination. Pt is being accompanied by CURATORIAL SPECIALIST at this time to be transported to rehab. All needs met.
== END 2017-03-09 10:10 | disposition other institution (70) | DRG 895 ==
LOC: SRC 19:02
PROVIDERS: ADMIT Internal Medicine; ATTEND Internal Medicine
PROC: HZ2ZZZZ Detoxification Services for Substance Abuse Treatment (ICD-10-PCS; principal; 2017-03-04)
PROC: HZ31ZZZ Individual Counseling for Substance Abuse Treatment, Behavioral (ICD-10-PCS; 2017-03-06)
DX: F11.23 Opioid dependence with withdrawal (principal); F33.2 Major depressive disorder, recurrent severe without psychotic features; F17.210 Nicotine dependence, cigarettes, uncomplicated; F41.9 Anxiety disorder, unspecified; G43.909 Migraine, unspecified, not intractable, without status migrainosus; Z91.89 Other specified personal risk factors, not elsewhere classified; F15.23 Other stimulant dependence with withdrawal; Z79.899 Other long term (current) drug therapy; Z81.4 Family history of other substance abuse and dependence; Z81.8 Family history of other mental and behavioral disorders; Z80.3 Family history of malignant neoplasm of breast; Z83.3 Family history of diabetes mellitus; Z81.1 Family history of alcohol abuse and dependence; H65.01 Acute serous otitis media, right ear; B18.2 Chronic viral hepatitis C
CPT/HCPCS: 36415; 80307; 80324; 80361; 83735; 84703; 85025; 86592; 86705; 86803; 87340; 87806; A4663; G0480; J1885; Q0144; Q0163

== ENCOUNTER 2017-05-15 07:33 | Inpatient (IN) | payer BC, OTHER ==
[~2017-05-15] VITALS: Ht 162.6 cm; Wt 52.2 kg
[~2017-05-15 07:33] MED LIST changes: +AZIT250T13 PO; -BACL20TA PO; +DIPH50CA37 PO; -IBUP-1955 PO; +METH-406 PO; +NAPR500T4 PO
[2017-05-17 22:15] VITALS: BP 132/89
--- NOTE | 2017-05-17 22:15 | NUR ---
PRE-ADMISSION NOT E VS BP-132/89 P-97 T-98.5 R-16 PA-0/10. SpO2 AT 98% IN RA. PATIENT IS AMBULATORY AND GAIT IS STEADY. SPEECH IS CLEAR AND ANSWER QUESTIONS APPROPRIATELY. PATIENT STATES SHE'S ALLERGIC TO IODINE AND SHELLFISH. PATIENT REPORTS HISTORY OF SEIZURE , LAST ONE WAS FEW YEARS AGO-COCAINE INDUCED. PATIENT IS HERE FOR HEROIN AND METH. WILL CONTINUE ADMISSION ON 3RD FLOOR.
[2017-05-17] MEDS ORDERED: TRAZ-147 PO (22:22)
[2017-05-17] MEDS ORDERED: CITA40TA11 PO (22:22)
--- NOTE | 2017-05-17 22:36 | NUR ---
ADMISSION NOTE PATIENT IS A 41 YEAR OLD FEMALE WHO PRESENTS TO [facility] FOR SUPERVISED WITHDRAWAL FROM OPIATE/METH DEPENDENCE. HEIGHT IS 5'4 AND WEIGHT IS 115 LBS. LUNGS CLEAR AND BOWEL SOUND ACTIVE ON ALL QUADRANT. ABDOMEN SOFT AND NON-DISTENDED. PATIENT REPORTS PMH OF ANXIETY, DEPRESSION, PTSD, SEIZURE-LAST ONE WAS FEW YEARS AGO D/T COCAINE INDUCED , UMBILICAL HERNIA REPAIR, INGUINAL HERNIA, HEP C, BREAST LUMP REMOVAL SUICIDE ATTEMPT(10 YEARS AGO). BODY CHECK DONE AND NOTED WITH SCABS ON UPPER EXTREMITIES DUE TO PICKING, RIGHT UPPER THIGH HEALING SCAB AND ON RIGHT ANKLE. 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 PATIENT REQUESTS TO BE FULL CODE AND ON REGULAR DIET . PATIENT'S DRUG OF CHOICE ARE : 1.HEROIN (SMOKE)-SHE STARTED USING 11 YEARS AGO. PATIENT SMOKES 1.5 GRAMS DAILY SINCE FEB 2017. LAST USE WAS 1/4TH OF A GRAM ON 05/17/17 2.METHAMPHETAMINE-HE STARTED USING SINCE SHE WAS ON HER 20'S . SHE SNORTS 1/2 GRAM DAILY SINCE FEB 2017. LAST USE WAS "1 HIT "ON 05/16/16 PATIENT"S TREATMENT ARE FF: [facility]-SEPTEMBER 05, 2015, Dec, JAN 07, 2017 AND Feb PATIENT SMOKES ONLY WHEN SHE IN DETOX ,1/2 PACK DAILY. PATIENT BROUGHT HOME MEDS-RECONCILED. PATIENT DOES NOT HAVE PCP. PATIENT APPEARS TO BE ANXIOUS. COWS 3 UPON ASSESSMENT. PATIENT ORIENTED TO SURROUNDINGS AND HOW TO USE CALL LIGHT. PATIENT REFUSED PNEUMONIA VACCINE , EXPLAINED RISKS/BENEFITS BUT STILL REFUSED. PATIENT STATE SHE HAD FLU VACCINE LAST WEEK. PATIENT DENIES SI/HI. PLACED ON FALL/SEIZURE PRECAUTION. SAFETY MEASURES IN PLACE. CALL LIGHT IN REACH. WILL CONTINUE TO MONITOR.
[2017-05-17] MEDS ORDERED: LOPERAMIDE HCL 2 MG CAPSULE PO PRN ×2 (22:45)
[2017-05-17] MEDS ORDERED: MAGNESIUM HYDROXIDE 30 ML LIQUID UDC PO PRN (22:45)
[2017-05-17] MEDS ORDERED: ONDANSETRON 4 MG/2 ML VIAL IM PRN (22:45)
[2017-05-17] MEDS ORDERED: CLONIDINE HCL 0.1 MG TABLET PO PRN (22:45)
[2017-05-17] MEDS ORDERED: DICYCLOMINE HCL 20 MG TABLET PO PRN (22:45)
[2017-05-17] MEDS ORDERED: diphenhydrAMINE 50 MG CAPSULE PO PRN (22:45)
[2017-05-17] MEDS ORDERED: MAG HYDROX/AL HYDROX/SIMETH 30 ML LIQUID UDC PO PRN (22:45)
[2017-05-17] MEDS ORDERED: ACETAMINOPHEN 325 MG TABLET PO PRN (22:45)
[2017-05-17] MEDS ORDERED: MIRALAX 17 GM POWD.PACK PO PRN (22:45)
[2017-05-17] MEDS ORDERED: BUPRENORPHINE HCL 2 MG TAB.SUBL SL PRN (22:45)
[2017-05-17] MEDS ORDERED: LORAZEPAM 1 MG TABLET PO PRN (22:45)
[2017-05-17] MEDS ORDERED: ONDANSETRON ODT 4 MG TAB.RAPDIS SL PRN (22:45)
[2017-05-17 22:56] LABS: *URINE HCG, QUAL NEGATIVE (NEGATIVE)
[2017-05-17 23:03] LABS: *AMPHETAMINE, URINE POSITIVE (NEGATIVE); *BARBITURATE, URINE NEGATIVE (NEGATIVE); *CANNABINOID, URINE NEGATIVE (NEGATIVE); *COCCAINE, URINE NEGATIVE (NEGATIVE); *OPIATE, URINE POSITIVE (NEGATIVE); *PHENCYCLIDINE SCREEN,URINE NEGATIVE (NEGATIVE)
[2017-05-17 23:16] LABS: BASOPHILS # (AUTO) 0.1 K/uL (0.0-8.0); BASOPHILS % (AUTO) 0.9 % (0.0-2.0); EOSINOPHILS # (AUTO) 0.1 K/uL (0.0-0.7); EOSINOPHILS % (AUTO) 1.8 % (0.0-7.0); HEMATOCRIT 38.5 % (31.2-41.9); HEMOGLOBIN 13.1 g/dL (10.9-14.3); LYMPHOCYTES # (AUTO) 2.9 K/uL (20.0-40.0); LYMPHOCYTES % (AUTO) 37.5 % (20.5-51.5); MEAN CORPUSCULAR HEMOGLOBIN 30.4 uug (24.7-32.8); MEAN CORPUSCULAR HGB CONC 34 g/dL (32.3-35.6); MEAN CORPUSCULAR VOLUME 89.6 fL (75.5-95.3); MONOCYTES # (AUTO) 0.9 K/uL (2.0-10.0); MONOCYTES % (AUTO) 11.4 % (0.0-11.0); NEUTROPHILS # (AUTO) 3.7 K/uL (1.8-8.9); NEUTROPHILS % (AUTO) 48.4 % (38.5-71.5); PLATELET COUNT (AUTO) 298 K/uL (179-408); WHITE BLOOD COUNT (AUTO) 7.7 K/uL (3.8-11.8)
[2017-05-17 23:23] LABS: ETHANOL < 3 MG/DL (0-0)
[2017-05-17 23:24] LABS: ALANINE AMINOTRANSFERASE 47 U/L (14-59); ALKALINE PHOSPHATASE 86 U/L (50-136); ASPARTATE AMINOTRANSFERASE 30 U/L (15-37); BILIRUBIN,TOTAL 0.2 mg/dL (0.2-1.0); CARBON DIOXIDE 32 mmol/L (21-32); CHLORIDE 104 mmol/L (98-107); CREATININE 0.8 mg/dL (0.6-1.3); GLUCOSE 89 mg/dL (74-106); MAGNESIUM 1.9 mg/dL (1.8-2.4); POTASSIUM 3.9 mmol/L (3.5-5.1); TOTAL PROTEIN, SERUM 7.3 g/dL (6.4-8.2); UREA NITROGEN, BLOOD 11 mg/dL (7-18)
[2017-05-17] MEDS ORDERED: LORAZEPAM 1 MG TABLET PO SCH (23:30)
[2017-05-18] VITALS: BP 114/74
--- NOTE | 2017-05-18 | NUR ---
COWS AND CIWA DEFERRED PATIENT REFUSED VS. RESPIRATION EVEN AND UNLABORED. SAFETY MEASURES IN PLACE. CALL LIGHT IN REACH. WILL CONTINUE TO MONITOR Addendum: 05/18/17 at 0602 by ERIN BARBER LVN ERROR: CIWA DEFERRED. PATIENT IS ON COWS ASSESSMENT NOT ON CIWA
[2017-05-18 04:00] VITALS: BP 103/60
--- NOTE | 2017-05-18 04:00 | NUR ---
COWS DEFERRED PATIENT REFUSED VS. RESPIRATION EVEN AND UNLABORED. SAFETY MEASURES IN PLACE. CALL LIGHT IN REACH. WILL CONTINUE TO MONITOR
--- NOTE | 2017-05-18 07:26 | NUR ---
END OF SHIFT NOTE PATIENT NEWLY ADMITTED FOR OPIATE/METH DEPENDENCE.PATIENT SLEPT 6 HOURS. FLUID INTAKE 355 ML. VOIDED X 1. NO BM . PATIENT'S LAST COWS 3. PER PATIENT SHE'S NOT WITHDRAWING YET. PATIENT REFUSED 2330 ATIVAN ONE TIME MD ORDER. PATIENT STATED SHE WANTS TO SLEEP. PATIENT DID NOT REQUIRE ANY PRN MEDICATION. WILL CONTINUE TO MONITOR.
--- NOTE | 2017-05-18 07:30 | NUR ---
Start of Shift Report from the night nurse: pt is a readmission last night, 41 y/o female here for Meth and Heroin; no taper ordered at this time, no PRN's given last night. Pt is a full code, regular diet, allergic to iodine & shell fish, fall and seizure precautions ordered. V/S stable. Skin is not intact with scabs on t BLE's, no open wounds noted. Last COWS 3. Recommended to f/u re: UDS with positive benzo's. Pt is asleep in room. Will cont. to monitor the pt.
[2017-05-18 08:00] VITALS: BP 95/58
[2017-05-18] MEDS ORDERED: BUPRENORPHINE HCL 2 MG TAB.SUBL SL SCH (09:00)
[2017-05-18] MEDS ORDERED: TUBERCULIN,PURIF.PROT.DERIV. 5 TU/0.1 ML TEST ID ONE (09:00)
[2017-05-18] MEDS ORDERED: ASPIRIN/ACETAMINOPHEN/CAFFEINE TABLET PO PRN (11:00)
[2017-05-18] MEDS: HYDROXYZINE PAMOATE 25 MG CAPSULE PO PRN ×2 (11:57→21:28)
[2017-05-18] MEDS: IBUPROFEN 600 MG TABLET PO PRN ×2 (11:57→21:28)
--- NOTE | 2017-05-18 11:57 | NUR ---
PRN Medication Administration Pt comes to the nursing station with sweat streaming off of her forehead and face and states that she is very irritable and anxious, states the she wants to leave AMA, so I took her back to her room and assessed her at rest in bed with restlessness, pupils dilated larger than normal, stuffy nose, yawning twice, tremors observed, pt c/o stomach cramps, severe body aching pain 9/10 generalized, slight MARR, nausea, HR 94, BP 104/60, COWS 21; PRN Subutex 4mg SL given w/n parameters with PRN Zofran 4mg SL, Vistaril 25mg, Motin 400mg & Bentyl 20mg PO. CN notified Dr. Hernandez with directions to give PRN Ativan 2mg PO. Will reassess the pt in 1H.
[2017-05-18 12:00] VITALS: BP 104/60
--- NOTE | 2017-05-18 12:57 | NUR ---
Reassessment Pt is in room asleep with observable nasal congestion, flushing and moisture on forehead present. No ab cramps, nausea, pain, respiratory depression, anxiety or irritability noted; PRN Subutex, Ativan, Vistaril, Motrin, Zofran, Bentyl are effective. Will cont. to monitor the pt.
[2017-05-18] MEDS ORDERED: Medication Not On Formulary EA (Citalopram Hydrobromide (Citalopram Hbr) 40 MG) PO SCH (15:15)
[2017-05-18 16:00] VITALS: BP 122/73
[2017-05-18] MEDS: GABAPENTIN 300 MG CAPSULE PO SCH ×2 (16:01→21:28)
[2017-05-18] MEDS: BUPRENORPHINE HCL 2 MG TAB.SUBL SL SCH ×2 (16:01→21:28)
[2017-05-18] MEDS: CITALOPRAM 20 MG TABLET PO SCH (16:01)
[2017-05-18] MEDS: NEOMY/BACITRAC/POLYMI OINT 28.35 GM TUBE TOP SCH (17:00)
--- NOTE | 2017-05-18 18:56 | NUR ---
End of Shift Report to the night nurse: pt is a readmission last night, 41 y/o female here for Meth and Heroin; no taper ordered at this time, no PRN's given last night. Pt is a full code, regular diet, allergic to iodine & shell fish, fall and seizure precautions ordered. V/S stable. Skin is not intact with scabs on t BLE's, no open wounds noted. PPD test done on Rt FA today. PRN Vistaril 25mg, Motrin 400mg, Bentyl 20mg, Ativan for anxiety, Zofran 4mg SL, Subutex 4mg given with COWS 21 around 12pm during my shift. No hallucinations, delusions or suicidal ideations noted. Pt did not attend group therapy or activities during my shift. Last COWS 7.
--- NOTE | 2017-05-18 19:15 | NUR ---
START OF SHIFT NOTE : Pt. is 41 y/o female admitted to [facility] for Meth and Heroin dependence on 05/17/2017; pt. placed on 5 day Subutex taper on 05/18/2017, tolerating well. Pt is a full code, regular diet, allergic to iodine & shell fish, fall and seizure precautions ordered. Pt. complains of general fatigue, body pain 8/10, increased level of anxiety. Safety measures in place : bed on lowest position with side rails x2 up for safety, call light within reach. Will continue to monitor closely and offer help.
[2017-05-18 20:00] VITALS: BP 127/83
--- NOTE | 2017-05-18 21:00 | NUR ---
PRN MOTRIN , VISTARIL Pt. complains of headache 6/10, increased level of anxiety. PRN MOTRIN, VISTARIL given as ordered. Safety measures in place : bed on lowest position with side rails x2 up for safety, call light within reach. Will continue to monitor closely and offer help.
[2017-05-18] MEDS: TOPIRAMATE 100 MG TABLET PO SCH (21:28)
[2017-05-18] MEDS: TRAZODONE 100 MG TABLET PO SCH (21:28)
--- NOTE | 2017-05-18 22:00 | NUR ---
RE-ASSESSMENT MATT FAY Pt. is sleeping, RR=16 unlabored and even. Safety measures in place : bed on lowest position with side rails x2 up for safety, call light within reach. Will continue to monitor closely and offer help.
--- NOTE | 2017-05-19 07:00 | NUR ---
END OF SHIFT NOTE : Pt. is 41 y/o female admitted to [facility] for Meth and Heroin dependence on 05/17/2017; pt. placed on 5 day Subutex taper on 05/18/2017, tolerating well. Pt is a full code, regular diet, allergic to iodine & shell fish, fall and seizure precautions ordered. Pt remains compliant with the treatment plan. PRN Motrin, Vistaril given during my shift. V/S remain WNL. RR=16, even and unlabored, lungs clear upon auscultation, abdomen soft and non- distended. Pt denies nausea, vomiting and diarrhea. COWS taken when pt. was alert during the night, LAST COWS=4 at 0400 , INTAKE= 979 ml, voided x2 , slept 11 hours. Safety measures in place : bed on lowest position with side rails x2 up for safety, call light within reach. Will continue to monitor closely and offer help.
--- NOTE | 2017-05-19 07:48 | NUR ---
START OF SHIFT RECEIVED PT LAYING IN BED IN A POSITION, APPEARS DEPRESSED AND ANXIOUS, A/OX4, RESPIRATIONS EVEN AND UNLABORED. PT REPORTS HAVING ANXIETY, COLD SWEATS, GENERALIZED BODY ACHES /. ENCOURAGED PT TO INCREASE FLUIDS TO FACILITATE IN DETOX. SIDE RAILS UPX2, BED IS IN LOWEST POSITION. CALL LIGHT IS WITHIN REACH. PT IS ON SZ AND FALL PRECAUTIONS. WILL CONTINUE TO MONITOR.
[2017-05-19 08:00] VITALS: BP 109/71
[2017-05-19] MEDS: IBUPROFEN 600 MG TABLET PO PRN ×2 (08:28→21:12)
--- NOTE | 2017-05-19 08:28 | NUR ---
PRN IBUPROFEN 500 MG PO PRN GIVEN FOR BACK ACHE 01/19. WILL MONITOR FOR EFFECTIVENESS.
[2017-05-19] MEDS: GABAPENTIN 300 MG CAPSULE PO SCH ×2 (08:30→14:16)
[2017-05-19] MEDS: TOPIRAMATE 100 MG TABLET PO SCH ×2 (08:30→21:12)
[2017-05-19] MEDS: CITALOPRAM 20 MG TABLET PO SCH (08:31)
[2017-05-19] MEDS: NEOMY/BACITRAC/POLYMI OINT 28.35 GM TUBE TOP SCH ×2 (08:31→17:44)
[2017-05-19] MEDS ORDERED: BUPRENORPHINE HCL 2 MG TAB.SUBL SL SCH ×2 (09:00)
--- NOTE | 2017-05-19 09:00 | NUR ---
WOUND MANAGEMENT PT R WRIST TREATED WITH TRIPLE ABX OINTMENT. PT REFUSED TO SHOW AND HAVE R THIGH WOUND DESPITE HAVING RISKS AND BENEFITS EXPLAINED.
[2017-05-19] MEDS: METHOCARBAMOL 750 MG TABLET PO PRN ×2 (09:11→21:13)
--- NOTE | 2017-05-19 09:28 | NUR ---
REASSESSMENT/ PRN PT REPORTED IBUPROFEN WAS NOT EFFECTIVE FOR BACKACHE NOW 12/20. ROBAXIN 750 MG PO PRN GIVEN. WILL MONITOR FOR EFFECTIVENESS.
--- NOTE | 2017-05-19 10:28 | NUR ---
REASSESSMENT PT REPORTED ROBAXIN WAS EFFECTIVE FOR BODY ACHES AND BACK ACHE NOW 2/10 PAIN. WILL CONTINUE TO MONITOR.
[2017-05-19 12:00] VITALS: BP 112/67
[2017-05-19 13:08] LABS: HEPATITIS B SURFACE AG Negative (Negative)
[2017-05-19] MEDS: DICYCLOMINE HCL 20 MG TABLET PO SCH ×2 (14:16→21:12)
[2017-05-19] MEDS: BUPRENORPHINE HCL 2 MG TAB.SUBL SL SCH ×2 (14:16→21:12)
--- NOTE | 2017-05-19 14:23 | NUR ---
PRN CLONIDINE 0.1 MG PO PRN AND MILK OF MAGNESIUM PO PRN GIVEN FOR ANIXETY, AGITATION, COLD/HOT SWEATS, CHILLS, COWS 7, AND CONSTIPATION. WILL MONITOR FOR EFFECTIVENESS.
--- NOTE | 2017-05-19 15:23 | NUR ---
REASSESSMENT PT APPEARS CALM AND REPORTS FEELING LESS ANXIOUS BUT STATES SHE STILL HAS COLD FLASHES WHEN SHE GETS UP OR MOVES AROUND. PT STATES SHE HAS NOT HAD A BOWEL MOVEMENT YET BUT FEELS LIKE SHE WILL SOON. WILL CONTINUE TO MONITOR.
[2017-05-19 16:00] VITALS: BP 112/70
--- NOTE | 2017-05-19 19:15 | NUR ---
START OF SHIFT NOTE : Pt is a 41 y/o female admitted to [facility] for Heroin, Meth withdrawal on 05/17/2017. Pt. placed 5 day Subutex taper started on 05/18/2017, still presenting withdrawal symptoms. Last COWS=12 at 16:00 , PRN Motrin, Clonidine, Mom given during a day shift. Pt. is in the bed last two days, appears pale, unwashed hair, dirty linen (will be changed after assessment), poor eyes contact, anxious sad facial expression, flat affect. She complains of body and low back pain 8/10, sensitivity to sound and bright light, appetite loss, tachycardia, insomnia, difficulty concentrating, difficulty staying asleep. Safety measures in place : bed on lowest position with side rails x2 up for safety, call light within reach. Will continue to monitor closely and offer help.
--- NOTE | 2017-05-19 19:22 | NUR ---
END OF SHIFT PT APPEARS DISHEVELED, DEPRESSED, ANXIOUS, HYPOACTIVE, A/OX4, RESPIRATIONS EVEN AND UNLABORED. PT REPORTS HAVING ANXIETY, COLD SWEATS, GENERALIZED BODY ACHES. PT REPORTS HAVING PERSISTENT BACK ACHE. LAST COWS OF 8. PT STATES SHE IS NOT FEELING WELL ENOUGH TO GO TO GROUP TODAY AND HAS NOT ATTENDED. ENCOURAGED PT TO INCREASE FLUIDS TO FACILITATE IN DETOX. SIDE RAILS UPX2, BED IS IN LOWEST POSITION. CALL LIGHT IS WITHIN REACH. PT IS ON SZ AND FALL PRECAUTIONS. WILL GIVE ALL PERTINENT INFO AND ENDORSEMENT TO CUSTOMER DATA TECHNICIAN NURSE.
[2017-05-19 20:00] VITALS: BP 117/74
[2017-05-19] MEDS ORDERED: GABAPENTIN 300 MG CAPSULE PO SCH (21:00)
--- NOTE | 2017-05-19 21:00 | NUR ---
PRN ROBAXIN , MOTRIN Pt. complains of muscle spasm and low back pain 11/19. PRN ROBAXIN , MOTRIN given as ordered . Safety measures in place : bed on lowest position with side rails x2 up for safety, call light within reach. Will continue to monitor closely and offer help.
[2017-05-19] MEDS: TRAZODONE 100 MG TABLET PO SCH (21:12)
[2017-05-19] MEDS: CLONIDINE HCL 0.1 MG TABLET PO SCH (21:13)
--- NOTE | 2017-05-19 22:00 | NUR ---
RE-ASSESSMENT SUMEET ALEJANDRO Pt. is sleeping, RR=16 , unlabored and even. . Safety measures in place : bed on lowest position with side rails x2 up for safety, call light within reach. Will continue to monitor closely and offer help.
--- NOTE | 2017-05-19 23:00 | NUR ---
PRN TORADOL 30mg IM Pt. complains of muscle spasm and low back pain 11/19. PRN TORADOL 30mg IM given as ordered . Safety measures in place : bed on lowest position with side rails x2 up for safety, call light within reach. Will continue to monitor closely and offer help.
[2017-05-19] MEDS: KETOROLAC TROMETHAMINE 30 MG INJ IM PRN (23:20)
--- NOTE | 2017-05-20 | NUR ---
RE-ASSESSMENT TORADOL Pt. is sleeping, RR=16 , unlabored and even. . Safety measures in place : bed on lowest position with side rails x2 up for safety, call light within reach. Will continue to monitor closely and offer help.
--- NOTE | 2017-05-20 06:32 | NUR ---
END OF SHIFT NOTE : Pt is a 41 y/o female admitted to [facility] for Heroin, Meth withdrawal on 05/17/2017. Pt. placed 5 day Subutex taper started on 05/18/2017, still presenting withdrawal symptoms. Pt. is compliant with a TX plan, PRN given during bar gauger and lubricator tender : MOTRIN, ROBAXIN, TORADOL . COWS taken when pt. was awake, last COWS=6 at 04:00. Njoncn=[id number] , voided x1 , slept=6 hours. Safety measures in place : bed on lowest position with side rails x2 up for safety, call light within reach. Will continue to monitor closely and offer help.
--- NOTE | 2017-05-20 07:30 | NUR ---
START OF SHIFT Pt 41 y/o female admitted for opiate / methamphetamine dependence. Pt received in room on bed with eyes closed resting, but easily arousable to name. Pt alert and oriented to name, place, and time. Perrla. Respirations even and unlabored. Bilateral hand tremors noted. Pt appears slightly anxious this morning with pressured speech noted. It was reported that pt slept for 6 hours last night. Bed on lowest position with side rails x2 up for safety. Call light within reach.
[2017-05-20 08:00] VITALS: BP 98/59
[2017-05-20 08:30] VITALS: BP 100/62
[2017-05-20] MEDS: CITALOPRAM 20 MG TABLET PO SCH (08:58)
[2017-05-20] MEDS: LIDOCAINE 5% PATCH TD SCH (08:58)
[2017-05-20] MEDS: GABAPENTIN 300 MG CAPSULE PO SCH ×3 (08:58→21:43)
[2017-05-20] MEDS: CLONIDINE HCL 0.1 MG TABLET PO SCH ×2 (08:58→14:35)
[2017-05-20] MEDS: BUPRENORPHINE HCL 2 MG TAB.SUBL SL SCH ×3 (08:58→21:42)
[2017-05-20] MEDS: TOPIRAMATE 100 MG TABLET PO SCH ×2 (08:58→21:43)
[2017-05-20] MEDS: DICYCLOMINE HCL 20 MG TABLET PO SCH ×3 (08:58→21:43)
[2017-05-20] MEDS ORDERED: BUPRENORPHINE HCL 2 MG TAB.SUBL SL SCH (09:00)
[2017-05-20] MEDS: KETOROLAC TROMETHAMINE 30 MG INJ IM PRN ×2 (09:03→16:50)
--- NOTE | 2017-05-20 09:03 | NUR ---
PRN Pt states has generalized body pain but mostly lower back /. Toradol IM prn per MD order given and tolerated well.
[2017-05-20] MEDS: NEOMY/BACITRAC/POLYMI OINT 28.35 GM TUBE TOP SCH ×2 (09:11→16:50)
--- NOTE | 2017-05-20 10:03 | NUR ---
PRN EVAL Pt states pain level 3/10.
[2017-05-20 12:00] VITALS: BP 79/42
[2017-05-20] MEDS ORDERED: IBUPROFEN 800 MG TABLET PO PRN (13:30)
--- NOTE | 2017-05-20 13:49 | NUR ---
Client prompted client to come to group today. Client agreed to come to group.
[2017-05-20] MEDS: ACETAMINOPHEN 325 MG TABLET PO SCH ×2 (14:34→21:43)
[2017-05-20] MEDS: BACLOFEN 10 MG TABLET PO SCH ×2 (14:35→21:43)
[2017-05-20 16:00] VITALS: BP 91/58
--- NOTE | 2017-05-20 16:58 | NUR ---
PRN Pt with c/o generalized body pain 11/19. Toradol IM prn per MD order given and tolerated well.
--- NOTE | 2017-05-20 17:58 | NUR ---
PRN EVAL Pt states pain level 3/10.
--- NOTE | 2017-05-20 19:11 | NUR ---
END OF SHIFT Pt 41 y/o female admitted for medically supervised withdrawal. Pt appears disheveled. Food wrappings note on the floor, as well as open empty bottles around the bedside counter. Pt alert and oriented to name, place, and time. Perrla. Skin warm and moist to touch. Respirations even and unlabored. Bilateral hand tremors noted throughout the day. Pt appears fatigued throughout the day. COWS= 14@ 0800, 12@1200, and 12@1600. Pt observed isolative to room throughout the day and with minimal peer interaction noted. Pt did not attend group activity. Pt was seen by MD today. Pt is on a 5 day subutex taper and is currently on day 4. Pt medication compliant and tolerated well. No ASE noted. Pt was given toradol IM prn per MD order this morning for generalized and lower back pain 8/10. Pt stated it was effective pain level 3/10. Pt was given toradol IM prn per MD order this early evening for generalized and lower back pain 8/10. Pt stated it was effective pain level 3/10. Bed on lowest position with side rails x 2 up for safety. Call light within reach. No distress noted at this time.
--- NOTE | 2017-05-20 19:15 | NUR ---
START OF SHIFT NOTE : Pt is a 41 y/o female admitted to [facility] for Heroin, Meth withdrawal on 05/17/2017. Pt. placed 5 day Subutex taper started on 05/18/2017. Last COWS=12 at 16:00 , PRN Tramadol x2 given during a day shift. Pt. appears pale, poor eyes contact, anxious, flat affect. She missed her meetings today because she forgot scheduled time for group meetings. She complains of body and low back pain 6/10, sensitivity to sound and bright light, insomnia, difficulty concentrating, difficulty staying asleep. Day shift RN will remind pt. about group schedule and send her to the meetings on time. Safety measures in place : bed on lowest position with side rails x2 up for safety, call light within reach. Will continue to monitor closely and offer help.
[2017-05-20 20:00] VITALS: BP 94/57
[2017-05-20] MEDS: CLONIDINE HCL 0.2 MG TABLET PO SCH (20:57)
--- NOTE | 2017-05-20 21:00 | NUR ---
PRN ROBAXIN Pt. complains of muscle spasm . PRN ROBAXIN given as ordered . Safety measures in place : bed on lowest position with side rails x2 up for safety, call light within reach. Will continue to monitor closely and offer help.
[2017-05-20] MEDS: METHOCARBAMOL 750 MG TABLET PO PRN (21:43)
[2017-05-20] MEDS: TRAZODONE 100 MG TABLET PO SCH (21:43)
--- NOTE | 2017-05-20 22:00 | NUR ---
RE-ASSESSMENT FLAVIA Pt. is sleeping, RR=16 , unlabored and even. . Safety measures in place : bed on lowest position with side rails x2 up for safety, call light within reach. Will continue to monitor closely and offer help.
[2017-05-21 04:00] VITALS: BP 100/65
--- NOTE | 2017-05-21 06:17 | NUR ---
END OF SHIFT NOTE : Pt is a 41 y/o female admitted to [facility] for Heroin, Meth withdrawal on 05/17/2017. Pt. placed 5 day Subutex taper started on 05/18/2017. Pt. is compliant with a TX plan, PRN given during piece marker small arms : ROBAXIN. COWS taken when pt. was awake, last COWS= 9 at 04:00.Iojnln=[id number] , voided x 1 , slept= 7 hours. Pt. looks more relaxed, smiles when I have been joking in the room.Safety measures in place : bed on lowest position with side rails x2 up for safety, call light within reach. Will continue to monitor closely and offer help.
--- NOTE | 2017-05-21 07:30 | NUR ---
START OF SHIFT Pt 41 y/o female admitted for medically supervised withdrawal. Pt received in room on bed with eyes closed but easily arousable to name. Pt alert and oriented to name, place, and time. Perrla. Skin warm and moist to touch. Respirations even and unlabored. Bilateral hand tremors noted. Food wrappings and empty open bottles of drinks noted on bedside shelf and tray. Last cows=9 @ 0400 reported. Pt is on a 5 day subutex on day 4. It was reported that pt slept for 7 hours last night. Bed on lowest position with side rails x 2 up for safety. Call light within reach.
[2017-05-21 08:00] VITALS: BP 101/66
[2017-05-21] MEDS ORDERED: BUPRENORPHINE HCL 2 MG TAB.SUBL SL SCH (09:00)
[2017-05-21] MEDS: CITALOPRAM 20 MG TABLET PO SCH (09:33)
[2017-05-21] MEDS: CLONIDINE HCL 0.1 MG TABLET PO SCH ×2 (09:34→14:06)
[2017-05-21] MEDS: DICYCLOMINE HCL 20 MG TABLET PO SCH ×3 (09:34→21:24)
[2017-05-21] MEDS: ACETAMINOPHEN 325 MG TABLET PO SCH (09:34)
[2017-05-21] MEDS: BACLOFEN 10 MG TABLET PO SCH (09:34)
[2017-05-21] MEDS: GABAPENTIN 300 MG CAPSULE PO SCH ×2 (09:35→14:06)
[2017-05-21] MEDS: TOPIRAMATE 100 MG TABLET PO SCH ×2 (09:35→21:24)
[2017-05-21] MEDS: KETOROLAC TROMETHAMINE 30 MG INJ IM PRN (09:36)
[2017-05-21] MEDS: LIDOCAINE 5% PATCH TD SCH (09:36)
--- NOTE | 2017-05-21 09:36 | NUR ---
PRN Pt states has generalized body pain , but mostly on lower back /10. toradol IM prn per MD order given and tolerated well.
[2017-05-21] MEDS: NEOMY/BACITRAC/POLYMI OINT 28.35 GM TUBE TOP SCH ×2 (09:51→17:50)
--- NOTE | 2017-05-21 10:36 | NUR ---
PRN PIERRE Pt states pain 06/19.
[2017-05-21 12:00] VITALS: BP 101/66
--- NOTE | 2017-05-21 12:29 | NUR ---
Therapist prompted client to come to group today. Client agreed to come.
[2017-05-21] MEDS: HYDROXYZINE PAMOATE 25 MG CAPSULE PO PRN (14:06)
[2017-05-21] MEDS: ACETAMINOPHEN ES 500 MG TABLET PO SCH ×2 (14:06→21:24)
[2017-05-21] MEDS: BACLOFEN 20 MG TABLET PO SCH ×2 (14:06→21:24)
[2017-05-21] MEDS: FLUTICASONE PROP NASAL SPRAY 16 GM BOTTLE NS SCH (15:25)
[2017-05-21 16:00] VITALS: BP 90/44
--- NOTE | 2017-05-21 18:46 | NUR ---
END OF SHIFT Pt 41 y/o female admitted for medically supervised withdrawal. Pt appears disheveled. Food wrappings scattered throughout the bed and bedside. Pt alert and oriented to name, place, and time. Perrla. Skin warm and moist to touch. Respirations even and unlabored. Bilateral hand tremors noted this morning. COWS= 9@ 0800, 9@1200, and 9@1600. Pt observed isolative to room throughout the day and with minimal peer interaction noted. Pt did not attend group activity today even with encouragement. Pt was seen by MD today. Pt is on a 5 day subutex taper and is currently on day 5. Pt medication compliant and tolerated well. No ASE noted. Pt was given toradol IM prn per MD order this morning for generalized and lower back pain 8/10. Pt stated it was effective pain level 3/10. Bed on lowest position with side rails x 2 up for safety. Call light within reach. No distress noted at this time.
[2017-05-21 20:00] VITALS: BP 93/53
--- NOTE | 2017-05-21 20:00 | NUR ---
Start of Shift Patient is admitted for Heroin Withdrawal. Pt is AAOx4 but noted to be avoidant with conversation and isolates self most of the time. Pt appears melancholic and with dark undereye circles. Room with scattered food wrappers seen on some areas. Pt is anxious and is focused regarding her low back pain, with PRN Toradol ordered and with Lidocaine patch as well. Provided education and teachings regarding plan of care and treatment. Pt is ambulatory with steady gait and no SOB noted. Latest COWS=8. Will continue to monitor.
[2017-05-21] MEDS ORDERED: GABAPENTIN 300 MG CAPSULE PO SCH (21:00)
[2017-05-21] MEDS ORDERED: DIPH50CA37 PO (21:05)
[2017-05-21] MEDS ORDERED: TRAZ-147 PO (21:05)
[2017-05-21] MEDS ORDERED: HYDR-3895 PO (21:05)
[2017-05-21] MEDS ORDERED: IBUP-1957 PO (21:05)
[2017-05-21] MEDS ORDERED: TOPI100T PO ×2 (21:05)
[2017-05-21] MEDS ORDERED: LIDO30AD10 TD (21:05)
[2017-05-21] MEDS ORDERED: CLON0.1T14 PO (21:05)
[2017-05-21] MEDS ORDERED: BACL20TA PO (21:05)
[2017-05-21] MEDS ORDERED: GABA-534 PO ×2 (21:05)
[2017-05-21] MEDS ORDERED: DICY20TA28 PO (21:05)
[2017-05-21] MEDS ORDERED: ACET-2605 PO (21:05)
[2017-05-21] MEDS: CLONIDINE HCL 0.2 MG TABLET PO SCH (21:25)
[2017-05-21] MEDS: TRAZODONE 100 MG TABLET PO SCH (21:25)
[2017-05-22] VITALS: BP 99/57
[2017-05-22 04:00] VITALS: BP 100/54
--- NOTE | 2017-05-22 07:06 | NUR ---
End of Shift Patient is admitted for Heroin Withdrawal. No PRNs administered during the shift. Pt continues to have a blunted affect, is isolative and does not want to mingle with other patients. Room with scattered food wrappers seen on some areas. Pt continues to be anxious. Pt is ambulatory with steady gait and no SOB noted. Latest COWS=8, slept for 11 hours. Fall, universal, seizure and safety prec in place. Call light within reach. Endorsed to PM shift nurse for continuity of care.
--- NOTE | 2017-05-22 07:20 | NUR ---
START OF SHIFT PATIENT IS A 41 YEAR OLD ADMITTED TO [facility] ON 05/17/17 FOR WITHDRAWAL FROM HEROIN. PATIENT IS ASLEEP IN BED AT THIS TIME. LAST COWS 8 AND PATIENT SLEPT FOR 11 HOURS LAST NIGHT. PATIENT IS TO BE DISCHARGED TO " [facility] " THIS AM. WILL FOLLOW DC INSTRUCTION AND MD ORDERS.
[2017-05-22 08:00] VITALS: BP 110/72
[2017-05-22] MEDS: BACLOFEN 20 MG TABLET PO SCH (08:18)
[2017-05-22] MEDS: DICYCLOMINE HCL 20 MG TABLET PO SCH (08:18)
[2017-05-22] MEDS: CITALOPRAM 20 MG TABLET PO SCH (08:18)
[2017-05-22] MEDS: GABAPENTIN 300 MG CAPSULE PO SCH (08:19)
[2017-05-22 08:20] VITALS: BP 110/72
[2017-05-22] MEDS: CLONIDINE HCL 0.1 MG TABLET PO SCH (08:20)
[2017-05-22] MEDS: TOPIRAMATE 100 MG TABLET PO SCH (08:20)
[2017-05-22] MEDS: ACETAMINOPHEN ES 500 MG TABLET PO SCH (08:20)
[2017-05-22] MEDS: LIDOCAINE 5% PATCH TD SCH (08:23)
[2017-05-22] MEDS: FLUTICASONE PROP NASAL SPRAY 16 GM BOTTLE NS SCH (08:55)
[2017-05-22] MEDS: NEOMY/BACITRAC/POLYMI OINT 28.35 GM TUBE TOP SCH (08:56)
--- NOTE | 2017-05-22 09:47 | NUR ---
DISCHARGE NOTE PATIENT IS IN STABLE CONDITION, VITALS WNL, SKIN IS INTACT AND DENIES ANY SI/HI, ALL DC PAPERWORK SIGNED AND DATED, PT WAS DISCHARGED FROM [facility] ON 05/22/17 @ 0947. PT LEFT THE BUILDING WITH ALL HER BELONGINGS, MEDICATIONS AND PRESCRIPTIONS. AWARE. PATIENT AMBULATED OFF THE UNIT AND WAS DRIVEN BY " [facility] " TO " [facility].
== END 2017-05-22 09:47 | DRG 895 ==
LOC: SRC 05-17 21:39
PROVIDERS: ADMIT Internal Medicine; ATTEND Internal Medicine
PROC: HZ2ZZZZ Detoxification Services for Substance Abuse Treatment (ICD-10-PCS; principal; 2017-05-17)
PROC: HZ41ZZZ Group Counseling for Substance Abuse Treatment, Behavioral (ICD-10-PCS; 2017-05-20)
PROC: HZ31ZZZ Individual Counseling for Substance Abuse Treatment, Behavioral (ICD-10-PCS; 2017-05-21)
DX: F11.23 Opioid dependence with withdrawal (principal); F33.2 Major depressive disorder, recurrent severe without psychotic features; E87.0 Hyperosmolality and hypernatremia; Z91.5 Personal history of self-harm; G43.909 Migraine, unspecified, not intractable, without status migrainosus; F41.9 Anxiety disorder, unspecified; Z81.1 Family history of alcohol abuse and dependence; Z83.3 Family history of diabetes mellitus; Z80.3 Family history of malignant neoplasm of breast; F17.210 Nicotine dependence, cigarettes, uncomplicated; E86.1 Hypovolemia; F13.10 Sedative, hypnotic or anxiolytic abuse, uncomplicated; F15.23 Other stimulant dependence with withdrawal; L08.9 Local infection of the skin and subcutaneous tissue, unspecified; S80.922A Unspecified superficial injury of left lower leg, initial encounter; S80.921A Unspecified superficial injury of right lower leg, initial encounter; Y33.XXXA Other specified events, undetermined intent, initial encounter; Y92.89 Other specified places as the place of occurrence of the external cause; G47.00 Insomnia, unspecified; B19.20 Unspecified viral hepatitis C without hepatic coma
CPT/HCPCS: 36415; 70030-TC; 80307; 80324; 80346; 80361; 83735; 84703; 85025; 86580; 86592; 86705; 86803; 87340; 87806; A9150; G0480; J1885; J3535; Q0162

== ENCOUNTER 2018-01-23 18:35 | Inpatient (IN) | payer BC, OTHER ==
[~2018-01-23] VITALS: Ht 165.1 cm; Wt 54.0 kg
[~2018-01-23 18:35] MED LIST changes: +ACET-2605 PO; -AZIT250T13 PO; +BACL20TA PO; -CITA20TA19 PO; +CITA40TA11 PO; +IBUP-1957 PO; +LIDO30AD10 TD; -METH-406 PO; -NAPR500T4 PO; -TRAZ-147 PO; +TRAZ-214 PO
--- NOTE | 2018-01-23 22:20 | NUR ---
INTAKE ASSESSMENT Pt is a 42 y/o female; she is awake,alert and oriented x 4.She is here so that she can stop using Heroin and Methamphetamines safely under the supervision of medical accounting clerk.V/S taken; B/P=139/91,HR=87,R=16,T=97.5,O2 SAT= 96% on room air.Pt is allergic to Iodine and Shellfish.Pt reports history of drug induced seizures from cocaine; last seizure was 5 years ago.Pt denies having any withdrawal symptoms at this time.Speech is clear and pt is able to ambulate with a steady gait.Pt is in a stable condition to proceed to the third floor.
[2018-01-23] MEDS ORDERED: ONDANSETRON 4 MG/2 ML VIAL IM PRN (23:00)
[2018-01-23] MEDS ORDERED: DICYCLOMINE HCL 20 MG TABLET PO PRN (23:00)
[2018-01-23] MEDS ORDERED: CLONIDINE HCL 0.1 MG TABLET PO PRN (23:00)
[2018-01-23] MEDS ORDERED: ONDANSETRON ODT 4 MG TAB.RAPDIS SL PRN (23:00)
[2018-01-23] MEDS ORDERED: MAG HYDROX/AL HYDROX/SIMETH 30 ML LIQUID UDC PO PRN (23:00)
[2018-01-23] MEDS ORDERED: IBUPROFEN 600 MG TABLET PO PRN (23:00)
[2018-01-23] MEDS ORDERED: ACETAMINOPHEN 325 MG TABLET PO PRN (23:00)
[2018-01-23] MEDS ORDERED: LOPERAMIDE HCL 2 MG CAPSULE PO PRN ×2 (23:00)
[2018-01-23] MEDS ORDERED: METHOCARBAMOL 750 MG TABLET PO PRN (23:00)
[2018-01-23] MEDS ORDERED: HYDROXYZINE PAMOATE 25 MG CAPSULE PO PRN (23:00)
[2018-01-23] MEDS ORDERED: diphenhydrAMINE 50 MG CAPSULE PO PRN (23:00)
[2018-01-23] MEDS ORDERED: BUPRENORPHINE HCL 2 MG TAB.SUBL SL PRN (23:00)
[2018-01-23] MEDS ORDERED: MAGNESIUM HYDROXIDE 30 ML LIQUID UDC PO PRN (23:00)
[2018-01-23] MEDS ORDERED: MIRALAX 17 GM POWD.PACK PO PRN (23:00)
[2018-01-23] MEDS ORDERED: IBUP-23 PO (23:21)
[2018-01-23] MEDS ORDERED: ACET-2605 PO (23:21)
[2018-01-23] MEDS ORDERED: BUPR8TAB4 SL (23:21)
[2018-01-23] MEDS ORDERED: D ME PO (23:21)
[2018-01-23] MEDS ORDERED: BUSP10TA3 PO (23:21)
--- NOTE | 2018-01-23 23:30 | NUR ---
ADMISSION NOTE-- Admitting 42 y/o female to [facility] for medically supervised withdrawals from using Heroin and Methamphetamines.Pt stated that she began smoking Heroin at the age of 31 years and she began smoking meth since she was 23 years old.Pt stated " I started using these due to my family members and also I wanted to experience using them".She has been in and out of detox/treatment centers and has relapsed several times due to impatience,cravings,boredom and stress. Pt also stated that her step father and her brother shot himself last year.Her longest period of sobriety was for 5 years,approximately 10 years ago.She is determined to get sober and stay sober forever this time,because she wants to do this for herself and make her mother proud of her.She is also tired of using drugs and wants to stop forever to take care of herself and her mother. PHYSICAL ASSESSMENT-- Pt is 5 feet and 5 inches tall; weighs 119 pounds.Pt is A/A/O X 4,breathing is even and non labored,no wheezing or shortness of breath noted; lungs are clear to auscultation bilaterally.Abdomen is soft and palpable with bowel sounds present in all 4 quadrants.No c/o nausea,vomiting, diarrhea or constipation noted. Skin is intact,dry and warm to touch.Pt has multiple scars and healing pick gilliland scattered all over her body.No s/s of infection noted.PMH of anxiety,depression,PTSD, Hep C, migraine headaches,umbilical and inguinal hernia repair.Pt also reports history of drug induced seizures from cocaine use.She denies any hx of epilepsy; last seizure was 5 years ago.Pt is allergic to Iodine and Shellfish.Pt placed on a regular diet and full code status.Pt lives at home with her boyfriend and works as a commercial loan underwriter and publishing editor.Her PCP is Dr Goddard in [place]. PSYCHIATRIC ASSESSMENT-- Pt stated that she was placed on 5150 and hospitalized 20 years ago for DTS due to drug overdose.Pt stated that she was not suicidal and it was unintentional overdose.She reported unintentional overdosing x 4 in the past in the years 2001,2011 and 2017 x 2.Pt denies having any suicidal ideations at this time.She also denies any hx of withdrawal induced delirium and cardiac complications.She has hx of anxiety and takes Buspirone, hx of depression and takes Trazodone and Citalopram.Pt denies any A/V/H. DRUG USE HX-- 1) HEROIN-Pt has been smoking 1 to 2 grams daily for the past one month,last used on 01/23/18 at 1100. 2)METHAMPHETAMINES-Pt has been using 0.25 to 0.5 mg two to three times a week for the past 4 months.Last used on 01/22/18. TREATMENT HX-- Pt has been admitted to [facility] X 5 from August 2015 to May 2017. [facility] in July 2017 for 2 weeks. [facility] in April 2017 for one week. Longest sober period was for 5 years,10 years ago. Pt is awake and alert,does not appear intoxicated at this time and is not c/o any withdrawal symptoms.Unable to assess for COWS. Pt oriented to room and unit,care plan and safety checks initiated,snack provided,education material given.MD notified,will continue to monitor for safety and follow care plan.
[2018-01-24] VITALS: BP 133/82
[2018-01-24 00:14] LABS: *URINE HCG, QUAL NEGATIVE (NEGATIVE)
[2018-01-24 00:34] LABS: *AMPHETAMINE, URINE POSITIVE (NEGATIVE); *BARBITURATE, URINE NEGATIVE (NEGATIVE); *CANNABINOID, URINE NEGATIVE (NEGATIVE); *COCCAINE, URINE NEGATIVE (NEGATIVE); *OPIATE, URINE POSITIVE (NEGATIVE); *PHENCYCLIDINE SCREEN,URINE NEGATIVE (NEGATIVE)
[2018-01-24 01:55] LABS: BASOPHILS # (AUTO) 0.1 K/uL (0.0-8.0); BASOPHILS % (AUTO) 0.7 % (0.0-2.0); EOSINOPHILS # (AUTO) 0.1 K/uL (0.0-0.7); EOSINOPHILS % (AUTO) 1.8 % (0.0-7.0); HEMATOCRIT 36.6 % (31.2-41.9); HEMOGLOBIN 12.5 g/dL (10.9-14.3); LYMPHOCYTES # (AUTO) 2.6 K/uL (20.0-40.0); LYMPHOCYTES % (AUTO) 33.3 % (20.5-51.5); MEAN CORPUSCULAR HEMOGLOBIN 31.4 uug (24.7-32.8); MEAN CORPUSCULAR HGB CONC 34 g/dL (32.3-35.6); MONOCYTES # (AUTO) 0.6 K/uL (2.0-10.0); MONOCYTES % (AUTO) 8.1 % (0.0-11.0); NEUTROPHILS # (AUTO) 4.4 K/uL (1.8-8.9); NEUTROPHILS % (AUTO) 56.1 % (38.5-71.5); PLATELET COUNT (AUTO) 247 K/uL (179-408); RED BLOOD CELL COUNT(AUTO) 3.98 MIL/uL (3.63-4.92); WHITE BLOOD COUNT (AUTO) 7.8 K/uL (3.8-11.8)
[2018-01-24] MEDS ORDERED: DIPH50CA37 GT (02:03)
[2018-01-24] MEDS ORDERED: GLYC1SUP77 RC (02:03)
[2018-01-24] MEDS ORDERED: TERB30CR13 TP (02:03)
[2018-01-24 02:09] LABS: ALANINE AMINOTRANSFERASE 45 U/L (14-59); ALKALINE PHOSPHATASE 90 U/L (50-136); AMYLASE 52 U/L (25-115); ASPARTATE AMINOTRANSFERASE 29 U/L (15-37); BILIRUBIN,TOTAL 0.2 mg/dL (0.2-1.0); CARBON DIOXIDE 26 mmol/L (21-32); CHLORIDE 108 mmol/L (98-107); CREATININE 0.8 mg/dL (0.6-1.3); GLUCOSE 91 mg/dL (74-106); LIPASE 153 U/L (73-393); MAGNESIUM 1.9 mg/dL (1.8-2.4); POTASSIUM 3.2 mmol/L (3.5-5.1); TOTAL PROTEIN, SERUM 6.7 g/dL (6.4-8.2); UREA NITROGEN, BLOOD 14 mg/dL (7-18)
[2018-01-24 02:12] LABS: THYROID STIMULATING HORMONE 0.307 mIU/mL (0.358-3.740)
[2018-01-24 02:14] LABS: ETHANOL < 3 MG/DL (0-0)
[2018-01-24] MEDS ORDERED: POTASSIUM CHLORIDE 20 MEQ TAB.PRT.SR PO ONE (03:00)
--- NOTE | 2018-01-24 03:00 | NUR ---
POTASSIUM LEVEL 3.2 (LOW) REPLACED BY K DUR 40 MEQ. PO PER MD ORDERS.
[2018-01-24 04:00] VITALS: BP 131/79
--- NOTE | 2018-01-24 04:00 | NUR ---
COWS DEFERRED Pt is awake,sitting in bed,watching TV.Denies having any pain or s/s of withdrawal.Refused to take any PRN medications, will continue to monitor.
--- NOTE | 2018-01-24 06:45 | NUR ---
END OF SHIFT Pt admitted for medically supervised withdrawals from Heroin.Pt also reported using Methamphetamines.Drug screen is also positive for Benzos.When questioned,Pt denied taking any benzos, then stated "I took one pill of Ativan 2 weeks ago".Pt has been awake all night in bed,watching TV and reading.Pt did no c/o having any pain,anxiety or s/s of ant withdrawals.Pt was offered PRN meds but she refused to take any.Pt consumed 500 ml of fluids and voided x 2.No b/m reported.Pt noted to be sleeping at this time; breathing is even and non labored,no s/s of distress noted,unable to assess for COWS, will endorse care to oncoming shift.
--- NOTE | 2018-01-24 07:40 | NUR ---
START OF SHIFT Pt is a 42 yr old male, AA&Ox3. Pt was admitted on 01/23/18 for Opiate withdrawal and is on PRN's for s/s of w/d. Received report from shift coordinator nurse. Pt was unable to sleep during the night and was reported 0 hours of sleep. No PRN's were given during the night. Pt is noted restless and is unable to stay still. Pt is observed guarded and is avoidant in eye contact. During assessment when pt was asked about w/d symptoms pt was stating, "I rather not say". Pt was stating, "I don't want to get sick if I take the medication early". Pt was educated on the importance of medication regimen. Pt needs further education. Pt was encouraged increase fluid intake. Safety precautions precautions observed. Call light is within reach. Will continue to monitor. Addendum: 01/25/18 at 0833 by PAOLO LEGER LVN CORRECTION IN DOCUMENTATION Pt is a 42 year old female.
[2018-01-24 08:00] VITALS: BP 112/77
[2018-01-24] MEDS ORDERED: TUBERCULIN,PURIF.PROT.DERIV. 5 TU/0.1 ML TEST ID ONE (09:00)
--- NOTE | 2018-01-24 09:50 | NUR ---
PRN GIVEN/COWS ASSESSMENT Pt was noted fidgety, restlessness, flat affect, clammy skin and avoidant in eye contact. Pt was c/o muscle aches. COWS score was 9. Pt states she was not ready to take any Subutex at this time. Clonidine 0.1mg PO PRN, Vistaril 25mg PO PRN, Motrin 600mg PO PRN and Robaxin 750mg PO PRN was given as ordered for anxiety and muscle aches. PT was encouraged increase fluid intake. Will continue to monitor.
--- NOTE | 2018-01-24 10:50 | NUR ---
PRN RE-ASSESSMENT Clonidine PRN, Vistaril PRN, Motrin PRN and Robaxin PRN was effective. Pt was c/o anxiety and abdominal cramping but is able tolerate pain level. Encourage increase fluid intake. Will continue to monitor.
[2018-01-24 12:00] VITALS: BP 140/87
--- NOTE | 2018-01-24 12:00 | NUR ---
COWS ASSESSMENT Pt is c/o anxiety, muscle aches, abdominal pain, sweats and chills, constipation and lack of appetite. Pt is observed restless and fatigue. COWS score is 11. Pt was encouraged increase fluid intake for hydration.
[2018-01-24] MEDS ORDERED: MIRALAX 17 GM POWD.PACK PO PRN (13:15)
[2018-01-24] MEDS ORDERED: BUPRENORPHINE HCL 2 MG TAB.SUBL SL PRN (13:15)
[2018-01-24] MEDS: DOCUSATE SODIUM 250 MG CAPSULE PO SCH (13:38)
[2018-01-24] MEDS ORDERED: MINERAL OIL FLEET ENEMA 133 ML BOTTLE RC ONE (13:45)
--- NOTE | 2018-01-24 14:29 | NUR ---
Therapist prompted client to attend all group therapy sessions.
--- NOTE | 2018-01-24 14:46 | NUR ---
ONE TIME GIVEN Pt was c/o constipation. Dr. Tanner was made aware with new order for Fleet Enema one time. new order was noted and carried out. Fleet enema was given as ordered. Will continue to monitor.
--- NOTE | 2018-01-24 15:45 | NUR ---
Psychiatrist Communication and Seroquel ONE TIME NOW: Psychiatrist in to see pt. Pt noted to be very anxious/agitated. Psychiatrist with new order for 50mg Seroquel ONE TIME now. Order noted and carried out.
[2018-01-24 16:00] VITALS: BP 116/69
[2018-01-24] MEDS ORDERED: QUETIAPINE FUMARATE 25 MG TABLET PO ONE (16:00)
[2018-01-24] MEDS: CITALOPRAM 20 MG TABLET PO SCH (16:18)
[2018-01-24] MEDS: busPIRone 10 MG TABLET PO SCH (16:29)
--- NOTE | 2018-01-24 17:00 | NUR ---
CONTRABAND FOUND Contraband was found in pt's bathroom. Pt was observed euphoric and searching behind her bed stating, "I'm playing a game". when asked what game she was playing, pt's states "you wouldn't understand". Pt was transferred from 315 to 305 after body check was done. No contraband was found on the pt during body check. Room search was done. Administration and MD was made aware. pt was place on 1:1 for safety.
--- NOTE | 2018-01-24 17:38 | NUR ---
Psychiatrist Communication and Crisis Intervention called: Pt wanted to leave AMA and made a remark about wanting to kill herself. Psychiatrist made aware with order for crisis evaluation. Made a call to Crisis Intervention and they will be on the way as soon as possible.
--- NOTE | 2018-01-24 19:26 | NUR ---
END OF SHIFT Pt is a 42 yr old female, A&Ox3. Pt was admitted on 01/23/18 for Opiate withdrawal and is on PRNs for s/s of withdrawal. Pt has been noted fidgety, restless, euphoric, avoidant in eye contact, slurred speech and observed speaking to herself. Dr. Barreto was made aware and ordered Seroquel 50mg for Psychosis/agitation. Seroquel 50mg PO one time was given as ordered. Contraband was later found in her bathroom by Charge Nurse. Administration and MD was made aware. Pt was placed on 1:1 for safety. Crisis team was also called for suicide ideation. Waiting for crisis team to arrive on the unit. Endorsed to library technical assistant nurse to continue to f/u.
--- NOTE | 2018-01-24 19:30 | NUR ---
START OF SHIFT Pt is a 42 y/o female admitted on 01/23/18 for Opiate withdrawal and is on PRNs for s/s of withdrawal. Per report, PRN meds Clonidine 0.1mg PO , Vistaril 25mg PO , Motrin 600mg PO and Robaxin 750mg PO were given for anxiety and muscle aches and were effective.Last COWS was 11 at 1200.Per report Pt was acting bizarre during the day and wanted to leave AMA; she also made a remark of wanting to kill herself.Crisis team was called for evaluation.Pt received in bed in her room with 1:1 sitter at her bedside.Pt appears to be sleepy, unable to carry on a conversation ; pt noted to have a poor eye contact,nodding off to sleep during interview.Will continue to monitor.
--- NOTE | 2018-01-24 19:35 | NUR ---
CRISIS TEAM EVALUATION Crisis team sales consulting director Gail is here to assess Pt .Per evaluation,Pt does not meet criteria to be placed on 5150 since Pt denied having any suicidal thoughts.Pt remains on 1:1 for safety.Will continue to monitor.
[2018-01-24 20:00] VITALS: BP 114/69
--- NOTE | 2018-01-24 20:00 | NUR ---
COWS ASSESSMENT COWS=5.Pt is sleeping on an off,arousable on approach,c/o having generalized aches and pain and anxiety.Refused to take any PRN medications when offered,stated that she wants to leave AMA.Pt noted to be nodding off to sleep,appears lethargic and sleepy,will continue to monitor.
--- NOTE | 2018-01-24 20:40 | NUR ---
HS MED PASS Pt is cooperative with HS meds as ordered,did not verbalize any desire to leave AMA.Took medications as ordered,snack provided and she went back to sleep.Will continue to monitor.
[2018-01-24] MEDS ORDERED: TRAZODONE 100 MG TABLET PO SCH (21:00)
[2018-01-24] MEDS ORDERED: TOPIRAMATE 100 MG TABLET PO SCH (21:00)
[2018-01-25] VITALS: BP 113/71
--- NOTE | 2018-01-25 | NUR ---
COWS DEFERRED COWS deferred due to Pt being asleep; v/s are stable; breathing is even and non labored; no s/s of distress noted; sitter remains at bedside; will continue monitoring for safety.
[2018-01-25 04:00] VITALS: BP 124/85
--- NOTE | 2018-01-25 06:38 | NUR ---
END OF SHIFT Pt admitted for medically supervised withdrawals from Heroin.Pt also reported using Methamphetamines.Drug screen is also positive for Benzos.Pt has been sleeping all night.Pt did not get any PRN medications last night.Pt was offered PRN meds but she refused to take any.She complied with her scheduled HS medications.Pt consumed 60 ml of fluids with her medications,did not get up to use the bathroom.No b/m reported.Pt noted to be sleeping at this time; breathing is even and non labored,no s/s of distress noted,unable to assess for COWS, sitter remains at bedside for close monitoring,will endorse care to oncoming shift.
--- NOTE | 2018-01-25 08:00 | NUR ---
START OF SHIFT Pt is a 42 yr old female, admitted on 01/23/18 for Opiate withdrawal and is to start on 5 day Subutex taper as ordered. Received report form shift boss nurse. Pt was assessed by crisis team last night for suicide ideation. Pt denied any SI. No PRN's were given during the night. Pt slept 10 hrs throughout the night after being given Trazodone as scheduled at 2100. Last COWS score 5. Pt remains on 1:1 for safety. Pt is currently in bed sleeping with respirations even and unlabored. Skin is intact, warm and dry to touch. COWS score assessment is deferred at this time. Safety precautions observed. Call light is within reach. Will continue to monitor.
[2018-01-25 08:09] LABS: HEPATITIS B SURFACE AG Negative (Negative)
[2018-01-25 08:11] VITALS: BP 119/74
[2018-01-25] MEDS ORDERED: BUPRENORPHINE HCL 2 MG TAB.SUBL SL SCH (09:00)
[2018-01-25] MEDS: CITALOPRAM 20 MG TABLET PO SCH (09:00)
[2018-01-25] MEDS: busPIRone 10 MG TABLET PO SCH (09:00)
[2018-01-25] MEDS ORDERED: 5 DAY TAPER BUPRENORPHINE -SERENITY PROTOCOL SL PRN (09:00)
[2018-01-25] MEDS: DOCUSATE SODIUM 250 MG CAPSULE PO SCH (09:00)
[2018-01-25] MEDS ORDERED: TOPIRAMATE 100 MG TABLET PO SCH (09:00)
--- NOTE | 2018-01-25 09:45 | NUR ---
MEDICATION REFUSED Pt refused to take Buspar 15mg PO, Celexa 40mg PO, Topamax 200mg PO and Colace 250mg PO as scheduled at 0900. Pt states, "I am not going to take my home medications and get charged for it if I am leaving AMA". Pt was spoken to about the risks and benefits of medications. Pt states of leaving AMA stating, "I could just go home and detox myself, I have detox meds at home". Pt was spoken about the difference detoxing at home and being in a controlled environment. Pt was passive and needed further education. MD was made aware of pt stating to leaving AMA, Per MD, to hold Subutex 4mg SL as scheduled at 0900. Will continue to f/u.
--- NOTE | 2018-01-25 11:54 | NUR ---
AMA Pt has been stating of leaving AMA and stating, "I could just go home and detox myself". Pt was spoken to by multiple staff members, including administration, Dr. Tanner, nursing staff and therapist in regards to the risks of leaving AMA. Pt was able to verbalize understanding but remains adamant on leaving AMA. No SI/HI noted. Pt was given community resources. Pt was given all belongings, valuables and home medications. Pt was escorted off the unit at 1154 in stable condition.
[2018-01-26] MEDS ORDERED: BUPRENORPHINE HCL 2 MG TAB.SUBL SL SCH (09:00)
[2018-01-27] MEDS ORDERED: BUPRENORPHINE HCL 2 MG TAB.SUBL SL SCH ×2 (09:00→15:00)
[2018-01-28] MEDS ORDERED: BUPRENORPHINE HCL 2 MG TAB.SUBL SL SCH (09:00)
[2018-01-29] MEDS ORDERED: BUPRENORPHINE HCL 2 MG TAB.SUBL SL SCH (09:00)
== END 2018-01-25 11:54 | disposition left against medical advice (07) | DRG 894 ==
LOC: SRC 21:42
PROVIDERS: ADMIT Internal Medicine; ATTEND Family Medicine Addiction Medicine
PROC: HZ2ZZZZ Detoxification Services for Substance Abuse Treatment (ICD-10-PCS; principal; 2018-01-23)
DX: F11.23 Opioid dependence with withdrawal (principal); F15.23 Other stimulant dependence with withdrawal; F41.1 Generalized anxiety disorder; G40.909 Epilepsy, unspecified, not intractable, without status epilepticus; B19.20 Unspecified viral hepatitis C without hepatic coma; F43.10 Post-traumatic stress disorder, unspecified; G43.909 Migraine, unspecified, not intractable, without status migrainosus; Z81.1 Family history of alcohol abuse and dependence; Z80.3 Family history of malignant neoplasm of breast; Z83.3 Family history of diabetes mellitus; F32.9 Major depressive disorder, single episode, unspecified; F17.210 Nicotine dependence, cigarettes, uncomplicated; F13.239 Sedative, hypnotic or anxiolytic dependence with withdrawal, unspecified
CPT/HCPCS: 36415; 80307; 80324; 80346; 80361; 83690; 83735; 84443; 84703; 85025; 86580; 86592; 86705; 86803; 87340; 87806; A4663; G0480